=== PATIENT | male | born 1960 | race Caucasian/White ===

== ENCOUNTER → 2017-09-11 12:54 | Outpatient (CLI) | payer OTHER, SELFPAY ==
--- NOTE | 2017-09-11 13:05 | XR_ITS ---
XR ankle LT min 3V HISTORY: ITS.REASON: LT FOOT/ANKLE PAIN ORDERING PHYSICIAN: Alec Brennan MD PATIENT AGE: 56 years COMPARISON: None FINDINGS: No fracture or dislocation. No lytic or blastic change. There is normal mineralization.. The joint spaces are well-preserved. No significant degenerative/arthritic changes. No erosive changes evident. IMPRESSION: Negative ankle, no acute finding
--- NOTE | 2017-09-11 13:05 | XR_ITS ---
XR foot LT min 3V HISTORY: ITS.REASON: LT FOOT/ANKLE PAIN ORDERING PHYSICIAN: Alec Brennan MD PATIENT AGE: 56 years COMPARISON: None FINDINGS: Moderate osteoarthritic changes are present at the first metatarsophalangeal joint with decrease in the joint space, sclerosis, and osteophyte formation. Normal alignment. No fracture or dislocation. Prominent posterior osteophyte is present at the first metatarsal distally. IMPRESSION: Osteoarthritis of the first MTP joint otherwise negative
== END ==
PROVIDERS: PCP Family Medicine; Visit Provider Family Medicine
DX: M79.672 Pain in left foot (principal); M25.572 Pain in left ankle and joints of left foot
CPT/HCPCS: 73610; 73630

== ENCOUNTER → 2017-09-22 07:41 | Outpatient (CLI) | payer OTHER, SELFPAY ==
--- NOTE | 2017-09-22 08:17 | CT_ITS ---
CT ankle LT wo con INDICATION: Left ankle pain, history of gout, ITS.REASON: LEFT FOOT PAIN ORDERING PHYSICIAN: Alec Brennan MD PATIENT AGE: 56 years COMPARISON: 09/11/2017 TECHNIQUE: Axial images are obtained without contrast. Sagittal and coronal reformatted images are reviewed as well. All CT scans at the facility use one or more dose reduction, viz: automated exposure control; ma/kV adjustment per patient size (including targeted exams where dose is matched to indication; i.e. head); or iterative reconstruction technique. FINDINGS: No fracture or dislocation. No lytic or blastic change. The talar dome has an unremarkable appearance. No evidence of osteochondrosis/osteochondral defect. The joint space is well preserved at the ankle. The subtalar joint has an unremarkable appearance. No soft tissue masses or abnormalities evident. No radio opaque foreign bodies. IMPRESSION: Negative CT of the left ankle
--- NOTE | 2017-09-22 08:17 | CT_ITS ---
CT foot LT wo con INDICATION: Left foot pain, history of gout ITS.REASON: LEFT FOOT PAIN ORDERING PHYSICIAN: Alec Brennan MD PATIENT AGE: 56 years COMPARISON: 09/11/2017 TECHNIQUE: Axial images are obtained without contrast. Sagittal and coronal reformatted images are reviewed as well. All CT scans at the facility use one or more dose reduction, viz: automated exposure control; ma/kV adjustment per patient size (including targeted exams where dose is matched to indication; i.e. head); or iterative reconstruction technique. FINDINGS: No fracture or dislocation evident. No bony erosive process evident. There are moderate osteoarthritic changes of the first metatarsophalangeal joint with some minimal subarticular cystic changes which are well-circumscribed. Osteophyte is present along the distal and dorsal aspect of the first metatarsal. There is some minimal soft tissue calcification medial to the talonavicular joint nonspecific. No bony erosive process evident. No obvious gouty tophi. IMPRESSION: Osteoarthritic changes first metatarsophalangeal joint. No erosive changes or other acute finding evident
== END ==
PROVIDERS: PCP Family Medicine; Visit Provider Family Medicine
DX: M79.672 Pain in left foot (principal)
CPT/HCPCS: 73700

== ENCOUNTER → 2017-10-04 09:50 | Outpatient (CLI) | payer OTHER, SELFPAY ==
[2017-10-04 11:02] LABS: Basophils # 0.1 K/mm3 (0-0.2); Basophils % 0.8 % (0.1-2.0); Eosinophils # 0.1 K/mm3 (0.0-0.4); Hematocrit 56.1 % (42.0-52.0); Lymphocytes # 1.7 K/mm3 (0.7-4.5); Lymphocytes % 19.7 K/mm3 (10-50); Mean Corpuscular HGB Conc 33.2 g/dL (31.8-35.4); Mean Corpuscular Hemoglobin 30.6 pg (27.0-31.2); Mean Corpuscular Volume 91.9 fl (80-94); Monocytes # 0.4 K/mm3 (0.1-1.0); Monocytes % 5.1 % (1.7-9.3); Neutrophils # 6.4 K/mm3 (1.8-7.8); Neutrophils % 73.4 % (37.0-80.0); Platelet Count 183 K/mm3 (142-424); Red Cell Distribution Width 13.1 % (11.5-17.5); White Blood Count 8.7 K/mm3 (4.8-10.8)
[2017-10-04 11:24] LABS: Uric Acid 4.9 mg/dL (2.6-7.2)
[2017-10-04 11:40] LABS: C-Reactive Protein < 0.2 mg/L (0.0-0.9)
[2017-10-04 11:46] LABS: Hemoglobin 18.9 g/dL (14.1-18.0)
[2017-10-04 13:56] LABS: Erythrocyte Sedimentation Rate 10 mm/hr (0-20)
== END ==
PROVIDERS: PCP Family Medicine; Visit Provider Podiatrist
DX: M19.072 Primary osteoarthritis, left ankle and foot (principal); M25.572 Pain in left ankle and joints of left foot; M25.552 Pain in left hip; Z87.39 Personal history of other diseases of the musculoskeletal system and connective tissue
CPT/HCPCS: 36415; 84550; 85025; 85651; 86140

== ENCOUNTER → 2021-12-15 06:56 | Outpatient (CLI) | payer OTHER, SELFPAY ==
[2021-12-15 19:27] LABS: Basophils # 0.1 K/mm3 (0-0.2); Basophils % 1.7 % (0.1-2.0); Eosinophils # 0.2 K/mm3 (0.0-0.4); Eosinophils % 2.9 % (0.1-12.0); Hematocrit 48.6 % (42.0-52.0); Hemoglobin 15.6 g/dL (14.1-18.0); Lymphocytes % 29.8 % (10-50); Mean Corpuscular HGB Conc 32.1 g/dL (31.8-35.4); Mean Corpuscular Hemoglobin 30.5 pg (27.0-31.2); Mean Platelet Volume 9.9 fl (7.4-10.4); Monocytes # 0.5 K/mm3 (0.1-1.0); Monocytes % 7.3 % (1.7-9.3); Neutrophils # 3.9 K/mm3 (1.8-7.8); Neutrophils % 58.3 % (37.0-80.0); Platelet Count 211 K/mm3 (142-424); Red Blood Count 5.11 M/mm3 (4.60-6.20); Red Cell Distribution Width 13.6 % (11.5-17.5); White Blood Count 6.6 K/mm3 (4.8-10.8)
[2021-12-15 20:58] LABS: Alanine Aminotransferase 32 U/L (12-78); Albumin Level 4.3 g/dl (3.5-5.0); Albumin/Globulin Ratio 1.7 (1.1-1.8); Alkaline Phosphatase 72 U/L (38-126); Anion Gap 12.2 mEq/L (5-15); Aspartate Amino Transferase 28 U/L (17-59); Bilirubin,Total 0.6 mg/dl (0.2-1.3); Blood Urea Nitrogen 16 mg/dl (9-20); Calcium 9.1 mg/dl (8.4-10.2); Carbon Dioxide 27 mmol/L (22.0-30.0); Chloride 103 mmol/L (98-107); Chol/HDL Ratio 3.6 (1-3.5); Cholesterol 175 mg/dl (140-200); Estimated Glomerular Filt Rate 99 ml/min (>60); GFR (African American) 120 ML/MIN (>60); Globulin 2.6 g/dL (1.3-3.2); Glucose 124 mg/dl (74-100); HDL Cholesterol 49 mg/dl (40-60); Potassium 5.2 mmoL/L (3.5-5.1); Sodium 137 mmol/L (136-145); Total Protein,Serum 6.9 g/dl (6.3-8.2); Triglycerides 162 mg/dl (30-150); Uric Acid 5.4 mg/dl (3.5-8.5); VLDL Cholesterol 32 mg/dL (0-40)
[2021-12-15 21:17] LABS: Creatinine,Urine Random 36 mg/dL (Not Estab.)
[2021-12-15 21:23] LABS: Microalbumin < 6.000 mg/L (0-16.7)
[2021-12-15 21:28] LABS: Thyroid Stimulating Hormone 1.87 uIU/mL (0.465-4.68)
[2021-12-17 14:13] LABS: Direct LDL Cholesterol 91 mg/dL (100-129)
== END ==
PROVIDERS: PCP Family Medicine; Visit Provider Family Medicine
DX: E78.5 Hyperlipidemia, unspecified (principal); I10 Essential (primary) hypertension; E11.9 Type 2 diabetes mellitus without complications; Z79.84 Long term (current) use of oral hypoglycemic drugs
CPT/HCPCS: 80053; 80061; 82043; 82570; 84443; 84550; 85025

== ENCOUNTER 2022-08-05 07:30 | Day surgery (SDC) | payer OTHER, SELFPAY ==
[2022-08-04 09:47] VITALS: BMI 36.5
[2022-08-05 07:48] VITALS: BP 139/75; PULSE 70; RESP 18; TEMP 36.8; O2SAT 97
[2022-08-05 07:56] LABS: POC Glucose,Bedside 182 (70-110)
--- NOTE | 2022-08-05 08:56 | EXP.ANES.CKL ---
[facility] Disclaimer: The information contained in this section may have been updated after the patient was seen, as this information can be updated by other users. Medical History Diabetes type 2, uncontrolled HTN (hypertension) Hyperlipemia Surgical History No history of previous surgery Family History Other Cancer Diabetes Hyperlipidemia Hypertension Social History Smoking Status: Never smoker alcohol intake: former substance use type: denies use current occupational status: employed Travel in the last 8 weeks: None caffeine: Yes [facility] Anesthesia Checklist Patient Identification Patient Identification: Arm Band and Verbal (Name & ) Structural Data Admitted From: Home Planned Operative Procedure/s: Colonoscopy Consent for Planned Operative Procedure(s) Verified: Yes Verified Documents: Surgical Consent NPO Status Verified Time NPO: 03:00 Airway Assessment C-Spine Mobility Assessed: Yes TMJ Mobility Assessed: Yes Dentition: Poor Dentition Neurological Assessment Level of Consciousness: Awake, Alert and Appropriate Anesthesia Plan Anesthesia Risk discussed: Yes ASA Class: II Anesthesia Type: MAC
[2022-08-05 09:04] VITALS: O2SAT 97
--- NOTE | 2022-08-05 09:49 | P.PCN_ITS ---
Procedure: Date: 08/05/22 Patient Date of :: 1960 Procedure Performed:: Colonoscopy to cecum with polypectomy using hot snare and biopsy forceps Indications:: 61-year-old male referred by Darren Colunga for initial screening colonoscopy Performing Provider:: Chester Harris MD Referring Provider:: Darren Colunga Sedation:: MAC sedation Procedure:: Patient history was obtained and appropriate physical examination was performed. Patient's medications and allergies were reviewed. Informed consent was obtained after explaining the benefits, alternatives, and risks of the procedure including, but not limited to, bleeding, perforation, missed lesions, and adverse reaction to anesthesia medications. Patient was transported to endoscopy procedure room. Patient was connected to monitoring devices. Throughout the procedure the patient's blood pressure, pulse, and oxygen saturations were monitored continuously. Patient identification and planned procedure were verified by the staff. Patient was positioned in lateral decubitus position. Digital anorectal exam was performed. Variable stiffness Olympus colonoscope was inserted and advanced under direct visualization to the cecum. Adequacy of the colonic preparation was noted. The colonoscope was not able to be advanced into the terminal ileum. The colonoscope was then slowly withdrawn while carefully examining the color, texture, anatomy, and integrity of the mucosoa circumferentially. Within the rectum retroflexion was performed. Colonoscope was then withdrawn. Patient had some significant redundancy of the sigmoid colon which made advancement of the colonoscope somewhat difficult. Colonic preparation was fair and only fair visualization was achieved with trans colonoscopic irrigation and suctioning as there was particulate stool and undigested vegetable matter within the colon. However, the ileocecal valve and appendiceal orifice were clearly identified. Within the cecum there was a large flat irregular sessile polyp which was removed in a piecemeal fashion using hot snare. It appeared as though the entire polyp was removed. Colonoscope was withdrawn through the colon with careful surveillance. Irrigation was performed with suctioning but much of the particulate stool and undigested vegetable matter was unable to be removed and cleared. There were a couple of diminutive polyps at the splenic flexure re moved with cold biopsy. He had a few rare diverticuli. Findings:: Fair preparation despite irrigation and suctioning Moderately large irregular sessile polyp in the cecum removed with hot snare in a piecemeal fashion Diminutive polyps in the splenic flexure Rare diverticuli Recommendations:: Likely repeat colonoscopy 1 year given the poor preparation with actual low residue diet and multi day prep Complications:: None Estimated blood obtained (mL): 2
[2022-08-05 09:50] VITALS: BP 107/64; PULSE 89; RESP 16; TEMP 36.6; O2SAT 99
[2022-08-05 10:00] VITALS: BP 99/62; PULSE 71; RESP 16; O2SAT 98
[2022-08-05 10:10] VITALS: BP 129/80; PULSE 86; RESP 16; O2SAT 97
[2022-08-05 10:20] VITALS: BP 168/90; PULSE 69; RESP 18; O2SAT 100
== END 2022-08-05 10:20 | disposition home or self-care (01) ==
PROVIDERS: PCP Family Medicine; Visit Provider Surgery
PROC: 0DJD8ZZ Inspection of Lower Intestinal Tract, Via Natural or Artificial Opening Endoscopic (ICD-10-PCS; CPT 45380; principal; 2022-08-05 08:30)
DX: Z12.11 Encounter for screening for malignant neoplasm of colon (principal); D12.0 Benign neoplasm of cecum; E11.9 Type 2 diabetes mellitus without complications; Z79.899 Other long term (current) drug therapy
CPT/HCPCS: 45380; 45385; 82962; J2704

== ENCOUNTER → 2022-11-23 21:33 | Outpatient (CLI) | payer OTHER, SELFPAY ==
[2022-11-23 18:56] LABS: Basophils # 0.1 K/mm3 (0-0.2); Basophils % 1.2 % (0.1-2.0); Eosinophils # 0.1 K/mm3 (0.0-0.4); Eosinophils % 2.1 % (0.1-12.0); Hematocrit 52.5 % (42.0-52.0); Hemoglobin 16.6 g/dL (14.1-18.0); Lymphocytes # 1.8 K/mm3 (0.7-4.5); Lymphocytes % 29.1 % (10-50); Mean Corpuscular HGB Conc 31.7 g/dL (31.8-35.4); Mean Corpuscular Hemoglobin 30.1 pg (27.0-31.2); Mean Corpuscular Volume 95.1 fl (80-94); Mean Platelet Volume 9.9 fl (7.4-10.4); Monocytes # 0.5 K/mm3 (0.1-1.0); Monocytes % 7.7 % (1.7-9.3); Neutrophils # 3.8 K/mm3 (1.8-7.8); Neutrophils % 59.8 % (37.0-80.0); Platelet Count 174 K/mm3 (142-424); Red Blood Count 5.52 M/mm3 (4.60-6.20); Red Cell Distribution Width 13.5 % (11.5-17.5); White Blood Count 6.3 K/mm3 (4.8-10.8)
[2022-11-23 19:08] LABS: Alanine Aminotransferase 52 U/L (12-78); Albumin Level 4.4 g/dl (3.5-5.0); Albumin/Globulin Ratio 1.5 (1.1-1.8); Alkaline Phosphatase 81 U/L (38-126); Anion Gap 13.6 mEq/L (5-15); Aspartate Amino Transferase 36 U/L (17-59); Bilirubin,Total 0.7 mg/dl (0.2-1.3); Blood Urea Nitrogen 19 mg/dl (9-20); Calcium 9.3 mg/dl (8.4-10.2); Carbon Dioxide 26 mmol/L (22.0-30.0); Chloride 100 mmol/L (98-107); Chol/HDL Ratio 3.8 (1-3.5); Cholesterol 192 mg/dl (140-200); Estimated Glomerular Filt Rate 99 ml/min (>60); GFR (African American) 119 ML/MIN (>60); Glucose 161 mg/dl (74-100); HDL Cholesterol 51 mg/dl (40-60); Potassium 4.6 mmoL/L (3.5-5.1); Sodium 135 mmol/L (136-145); Total Protein,Serum 7.4 g/dl (6.3-8.2); Triglycerides 203 mg/dl (30-150); VLDL Cholesterol 41 mg/dL (0-40)
[2022-11-23 19:15] LABS: Creatinine,Urine Random 22 mg/dL (Not Estab.)
[2022-11-23 19:17] LABS: Microalbumin < 6.000 mg/L (0-16.7)
[2022-11-23 19:20] LABS: Direct LDL Cholesterol 95.79 mg/dL (100-129)
[2022-11-23 19:38] LABS: Prostate Specific Ag Screen 1.3 ng/ml (0.0-4.0)
[2022-11-23 19:44] LABS: Thyroid Stimulating Hormone 1.47 uIU/mL (0.465-4.68)
== END ==
PROVIDERS: PCP Family Medicine; Visit Provider Nurse Practitioner
DX: I10 Essential (primary) hypertension (principal); E78.5 Hyperlipidemia, unspecified; Z79.899 Other long term (current) drug therapy; Z12.5 Encounter for screening for malignant neoplasm of prostate
CPT/HCPCS: 80053; 80061; 82043; 82570; 83036; 84443; 85025; G0103

== ENCOUNTER 2023-02-17 06:16 | Day surgery (SDC) | payer OTHER, SELFPAY ==
[2023-02-15 15:02] VITALS: BMI 36.5
[2023-02-17] VITALS (7 sets, daily range): BP systolic 110–153; BP diastolic 66–79; PULSE 72–89; RESP 14–18; TEMP 36.4–36.6; O2SAT 93–97
[2023-02-17 06:51] LABS: POC Glucose,Bedside 174 (70-110)
--- NOTE | 2023-02-17 07:09 | EXP.ANES.CKL ---
[facility] Disclaimer: The information contained in this section may have been updated after the patient was seen, as this information can be updated by other users. Medical History Diabetes type 2, uncontrolled HTN (hypertension) Hyperlipemia Screening for malignant neoplasm of prostate Surgical History History of colonoscopy with polypectomy Family History Other Cancer Diabetes Hyperlipidemia Hypertension Social History (Updated 02/17/23 @ 06:49 by Reanna Frye RN) Smoking Status: Never smoker alcohol intake: former substance use type: denies use current occupational status: employed Travel in the last 8 weeks: None caffeine: Yes [facility] Anesthesia Checklist Patient Identification Patient Identification: Arm Band and Verbal (Name & ) Structural Data Admitted From: Home Planned Operative Procedure/s: Colonoscopy Consent for Planned Operative Procedure(s) Verified: Yes Verified Documents: Surgical Consent and History and Physical NPO Status Verified Time NPO: 03:00 Chart Verification Results Verified: CBC and BMP Additional verifications Fingerstick Blood Glucose: 174 Patient : No Anesthesia Reactions: No Hx Blood Transfusions: No Blood Transfusion Reaction: No Cephalosporin Allergy: No Previous Colonoscopy: Yes Cardiovascular Assessment Heart Sounds: S1 & S2 Pulse Rhythm: Irregular Peripheral Edema: No Airway Assessment Mallampati Score:: Class III C-Spine Mobility Assessed: Yes TMJ Mobility Assessed: Yes Dentition: Poor Dentition (Many missing, many broken. Nothing loose per pt.) Neurological Assessment Level of Consciousness: Awake, Alert, Appropriate and Follows Commands Hx Seizures: No Numbness or tingling in extremities: No Anesthesia Plan Anesthesia Risk discussed: Yes Anesthesia Plan: Verified ASA Class: III Anesthesia Type: MAC
--- NOTE | 2023-02-17 07:44 | P.PCN_ITS ---
Procedure: Date: 02/17/23 Patient Date of :: 1960 Procedure Performed:: Total colonoscopy to terminal ileum Indications:: Patient is a 62-year-old male whom I had performed initial screening colonoscopy on on 08/05/2022 after he had a positive Cologuard. He did have some significant redundancy and floppiness of the sigmoid colon. Colonic preparation was fair. In the cecum there was a large flat irregular sessile polyp removed piecemeal fashion using hot snare. It did appear as though the entire polyp was removed. However, this returned as sessile serrated adenoma. Given the large size and s uboptimal visualization recommendations were for follow-up colonoscopy 6 months to ensure complete removal and rule out early recurrence. Performing Provider:: Chester Harris MD Referring Provider:: Darren Colunga MD Sedation:: MAC sedation Procedure:: Patient history was obtained and appropriate physical examination was performed. Patient's medications and allergies were reviewed. Informed consent was obtained after explaining the benefits, alternatives, and risks of the procedure including, but not limited to, bleeding, perforation, missed lesions, and adverse reaction to anesthesia medications. Patient was transported to endoscopy procedure room. Patient was connected to monitoring devices. Throughout the procedure the patient's blood pressure, pulse, and oxygen saturations were monitored continuously. Patient identification and planned procedure were verified by the staff. Patient was positioned in lateral decubitus position. Digital anorectal exam was performed. Variable stiffness Olympus colonoscope was inserted and advanced under direct visualization to the cecum. Adequacy of the colonic preparation was noted. The colonoscope was advanced a short distance into the terminal ileum. The colonoscope was then slowly withdrawn while carefully examining the color, texture, anatomy, and integrity of the mucosoa circumferentially. Within the rectum retroflexion was performed. Colonoscope was then withdrawn. . Colonic preparation was good. Visualization was good. Prolonged careful surveillance was carried out within the right colon and there was no evidence of any residual polyp or early recurrence. . Findings:: Unremarkable colonoscopy Recommendations:: Given prior history of large sessile polyp recommend repeat colonoscopy 2 years Complications:: None immediately apparent Estimated blood obtained (mL): 0 Colonoscopy Component Colonoscopy Component Was a colonoscopy performed during today's procedure?: Yes Recommended follow up colonoscopy of at least 10 years?: No If no, follow up colonoscopy recommended in ___ years?: 2 Reason for not recommending >/= 10 yr follow-up interval?: See above
--- NOTE | 2023-02-17 11:43 | P.PNANES_ITS ---
[facility] Anesthesia Record Part I Anesthesia Record I Intake, IV Amount: 600 Hydration: Adequate Estimated blood loss (mL): 0 Urine output (mL): 0 Blood Products used (#): none Blood Pressure: 111/66 SaO2: 96 Pulse Rate: 83 Airway Patency: Patent Respiratory Rate: 16 Temperature: 97.9 F Patient is:: Awake (Talking) and Stable Stable to PACU at:: 07:52
== END 2023-02-17 08:32 | disposition home or self-care (01) ==
PROVIDERS: PCP Family Medicine; Visit Provider Surgery
PROC: 0DJD8ZZ Inspection of Lower Intestinal Tract, Via Natural or Artificial Opening Endoscopic (ICD-10-PCS; CPT 45378; principal; 2023-02-17 07:30)
DX: Z12.11 Encounter for screening for malignant neoplasm of colon (principal); Z86.010 Personal history of colon polyps; E11.9 Type 2 diabetes mellitus without complications
CPT/HCPCS: 45378; 82962; J2704

== ENCOUNTER 2023-05-17 19:09 | Outpatient (CLI) | payer OTHER, SELFPAY ==
[2023-05-17 18:38] LABS: Alanine Aminotransferase 35 U/L (12-78); Albumin Level 4.1 g/dl (3.5-5.0); Albumin/Globulin Ratio 1.6 (1.1-1.8); Alkaline Phosphatase 66 U/L (38-126); Anion Gap 15.5 mEq/L (5-15); Aspartate Amino Transferase 26 U/L (17-59); Bilirubin,Total 0.6 mg/dl (0.2-1.3); Blood Urea Nitrogen 15 mg/dl (9-20); Calcium 9.1 mg/dl (8.4-10.2); Carbon Dioxide 28 mmol/L (22.0-30.0); Chloride 95 mmol/L (98-107); Chol/HDL Ratio 4.5 (1-3.5); Cholesterol 167 mg/dl (140-200); Estimated Glomerular Filt Rate 86 ml/min (>60); GFR (African American) 104 ML/MIN (>60); Globulin 2.6 g/dL (1.3-3.2); Glucose 178 mg/dl (74-100); HDL Cholesterol 37 mg/dl (40-60); Potassium 4.5 mmoL/L (3.5-5.1); Sodium 134 mmol/L (136-145); Total Protein,Serum 6.7 g/dl (6.3-8.2); Triglycerides 122 mg/dl (30-150); VLDL Cholesterol 24 mg/dL (0-40)
[2023-05-17 18:48] LABS: Direct LDL Cholesterol 98.32 mg/dL (100-129)
[2023-05-17 19:12] LABS: Creatinine,Urine Random 46 mg/dL (Not Estab.)
[2023-05-17 19:18] LABS: Microalbumin < 6.000 mg/L (0-16.7)
[2023-05-17 19:26] LABS: Vitamin B12 394 pg/mL (239-931)
== END 2023-05-17 23:59 ==
LOC: LAB.DROPOF 19:10
PROVIDERS: PCP Nurse Practitioner; Visit Provider Nurse Practitioner
DX: E78.5 Hyperlipidemia, unspecified (principal); I10 Essential (primary) hypertension
CPT/HCPCS: 80053; 80061; 82043; 82570; 82607

== ENCOUNTER 2023-08-01 18:00 | Outpatient (CLI) | payer OTHER, SELFPAY ==
[2023-08-01 18:52] LABS: Alanine Aminotransferase 30 U/L (12-78); Anion Gap 13.4 mEq/L (5-15); Aspartate Amino Transferase 25 U/L (17-59); Bilirubin,Total 0.6 mg/dl (0.2-1.3); Blood Urea Nitrogen 26 mg/dl (9-20); Calcium 9.4 mg/dl (8.4-10.2); Carbon Dioxide 22 mmol/L (22.0-30.0); Chloride 106 mmol/L (98-107); Estimated Glomerular Filt Rate 98 ml/min (>60); GFR (African American) 119 ML/MIN (>60); Glucose 174 mg/dl (74-100); Potassium 4.4 mmoL/L (3.5-5.1); Sodium 137 mmol/L (136-145)
[2023-08-01 18:53] LABS: Albumin Level 4.4 g/dl (3.5-5.0); Albumin/Globulin Ratio 1.6 (1.1-1.8); Alkaline Phosphatase 74 U/L (38-126); Globulin 2.7 g/dL (1.3-3.2); Total Protein,Serum 7.1 g/dl (6.3-8.2)
[2023-08-01 20:09] LABS: Hemoglobin A1C 8.2 % (4.0-6.0)
== END 2023-08-01 23:59 | disposition home or self-care (01) ==
LOC: LAB.DROPOF 08-02 08:19
PROVIDERS: PCP Nurse Practitioner; Visit Provider Nurse Practitioner
DX: E11.9 Type 2 diabetes mellitus without complications (principal); Z79.84 Long term (current) use of oral hypoglycemic drugs
CPT/HCPCS: 80053; 83036

== ENCOUNTER 2023-11-07 10:18 | Outpatient (CLI) | payer OTHER, SELFPAY ==
[2023-11-07 19:19] LABS: Albumin Level 4.3 g/dl (3.5-5.0); Chloride 106 mmol/L (98-107); Potassium 4.5 mmoL/L (3.5-5.1); Sodium 136 mmol/L (136-145)
[2023-11-07 19:21] LABS: Alanine Aminotransferase 32 U/L (12-78); Blood Urea Nitrogen 17 mg/dl (9-20); Estimated Glomerular Filt Rate 98 ml/min (>60); GFR (African American) 119 ML/MIN (>60)
[2023-11-07 19:22] LABS: Albumin/Globulin Ratio 1.7 (1.1-1.8); Alkaline Phosphatase 69 U/L (38-126); Anion Gap 12.5 mEq/L (5-15); Aspartate Amino Transferase 28 U/L (17-59); Bilirubin,Total 0.5 mg/dl (0.2-1.3); Calcium 9.6 mg/dl (8.4-10.2); Carbon Dioxide 22 mmol/L (22.0-30.0); Chol/HDL Ratio 3.8 (1-3.5); Cholesterol 195 mg/dl (140-200); Globulin 2.6 g/dL (1.3-3.2); Glucose 152 mg/dl (74-100); HDL Cholesterol 52 mg/dl (40-60); Total Protein,Serum 6.9 g/dl (6.3-8.2); Triglycerides 193 mg/dl (30-150); VLDL Cholesterol 39 mg/dL (0-40)
[2023-11-07 19:24] LABS: Hemoglobin A1C 7.1 % (4.0-6.0)
[2023-11-07 19:33] LABS: Direct LDL Cholesterol 106.25 mg/dL (100-129)
== END 2023-11-07 23:59 | disposition home or self-care (01) ==
LOC: LAB.DROPOF 11-08 10:18
PROVIDERS: PCP Nurse Practitioner; Visit Provider Nurse Practitioner
DX: Z79.84 Long term (current) use of oral hypoglycemic drugs (principal); E11.9 Type 2 diabetes mellitus without complications; E78.5 Hyperlipidemia, unspecified
CPT/HCPCS: 80053; 80061; 83036

== ENCOUNTER 2024-02-12 11:49 | Outpatient (CLI) | payer OTHER, SELFPAY ==
[2024-02-12 18:47] LABS: Hemoglobin A1C 7.4 % (4.0-6.0)
[2024-02-12 18:52] LABS: Alanine Aminotransferase 30 U/L (12-78); Albumin Level 4.4 g/dl (3.5-5.0); Albumin/Globulin Ratio 1.6 (1.1-1.8); Alkaline Phosphatase 64 U/L (38-126); Anion Gap 9.5 mEq/L (5-15); Aspartate Amino Transferase 26 U/L (17-59); Bilirubin,Total 0.7 mg/dl (0.2-1.3); Blood Urea Nitrogen 20 mg/dl (9-20); Calcium 9.5 mg/dl (8.4-10.2); Carbon Dioxide 22 mmol/L (22.0-30.0); Chloride 105 mmol/L (98-107); Chol/HDL Ratio 3.6 (1-3.5); Cholesterol 188 mg/dl (140-200); Estimated Glomerular Filt Rate 86 ml/min (>60); GFR (African American) 103 ML/MIN (>60); Globulin 2.7 g/dL (1.3-3.2); Glucose 132 mg/dl (74-100); HDL Cholesterol 52 mg/dl (40-60); Potassium 4.5 mmoL/L (3.5-5.1); Sodium 132 mmol/L (136-145); Total Protein,Serum 7.1 g/dl (6.3-8.2); Triglycerides 161 mg/dl (30-150); VLDL Cholesterol 32 mg/dL (0-40)
[2024-02-12 19:04] LABS: Direct LDL Cholesterol 116.25 mg/dL (100-129)
[2024-02-12 19:24] LABS: Prostate Specific Ag Screen 1.4 ng/ml (0.0-4.0); Thyroid Stimulating Hormone 1.61 uIU/mL (0.465-4.68)
[2024-02-12 19:42] LABS: Vitamin B12 457 pg/mL (239-931)
== END 2024-02-12 23:59 | disposition home or self-care (01) ==
LOC: LAB.DROPOF 02-13 11:49
PROVIDERS: PCP Nurse Practitioner; Visit Provider Nurse Practitioner
DX: E11.9 Type 2 diabetes mellitus without complications (principal); E78.5 Hyperlipidemia, unspecified; Z12.5 Encounter for screening for malignant neoplasm of prostate
CPT/HCPCS: 80053; 80061; 82607; 83036; 84443; G0103

== ENCOUNTER 2024-07-23 09:17 | Outpatient (CLI) | payer OTHER, SELFPAY ==
[2024-07-23 18:40] LABS: Basophils # 0.1 K/mm3 (0-0.2); Basophils % 1.2 % (0.1-2.0); Eosinophils # 0.2 K/mm3 (0.0-0.4); Eosinophils % 2.6 % (0.1-12.0); Hematocrit 48.3 % (42.0-52.0); Hemoglobin 15.9 g/dL (14.1-18.0); Lymphocytes # 1.7 K/mm3 (0.7-4.5); Lymphocytes % 25.8 % (10-50); Mean Corpuscular HGB Conc 32.9 g/dL (31.8-35.4); Mean Corpuscular Hemoglobin 30.3 pg (27.0-31.2); Monocytes # 0.6 K/mm3 (0.1-1.0); Monocytes % 8.5 % (1.7-9.3); Neutrophils # 4.1 K/mm3 (1.8-7.8); Neutrophils % 61.4 % (37.0-80.0); Nucleated Red Blood Cells # 0 10^3/uL; Nucleated Red Blood Cells % 0 %; Platelet Count 183 K/mm3 (142-424); Red Blood Count 5.25 M/mm3 (4.60-6.20); Red Cell Distribution Width 13.2 % (11.5-17.5); Red Cell Distribution Width-SD 44.6 fL; White Blood Count 6.6 K/mm3 (4.8-10.8)
[2024-07-23 19:20] LABS: Albumin Level 4.1 g/dl (3.5-5.0); Chloride 103 mmol/L (98-107); Potassium 4.5 mmoL/L (3.5-5.1); Sodium 136 mmol/L (136-145)
[2024-07-23 19:22] LABS: Alanine Aminotransferase 25 U/L (12-78); Blood Urea Nitrogen 20 mg/dl (9-20); Estimated Glomerular Filt Rate 98 ml/min (>60); GFR (African American) 119 ML/MIN (>60)
[2024-07-23 19:23] LABS: Albumin/Globulin Ratio 1.5 (1.1-1.8); Alkaline Phosphatase 74 U/L (38-126); Anion Gap 12.5 mEq/L (5-15); Aspartate Amino Transferase 21 U/L (17-59); Bilirubin,Total 0.7 mg/dl (0.2-1.3); Calcium 9.2 mg/dl (8.4-10.2); Carbon Dioxide 25 mmol/L (22.0-30.0); Chol/HDL Ratio 3.3 (1-3.5); Cholesterol 180 mg/dl (140-200); Globulin 2.8 g/dL (1.3-3.2); Glucose 160 mg/dl (74-100); HDL Cholesterol 54 mg/dl (40-60); Total Protein,Serum 6.9 g/dl (6.3-8.2); Triglycerides 165 mg/dl (30-150); VLDL Cholesterol 33 mg/dL (0-40)
[2024-07-23 19:34] LABS: Direct LDL Cholesterol 93.55 mg/dL (100-129)
[2024-07-23 21:09] LABS: Hemoglobin A1C 7.7 % (4.0-6.0)
== END 2024-07-23 23:59 | disposition home or self-care (01) ==
LOC: LAB.DROPOF 07-24 11:19
PROVIDERS: PCP Nurse Practitioner; Visit Provider Nurse Practitioner
DX: E78.5 Hyperlipidemia, unspecified (principal); E11.9 Type 2 diabetes mellitus without complications; Z79.84 Long term (current) use of oral hypoglycemic drugs
CPT/HCPCS: 80053; 80061; 83036; 85025

== ENCOUNTER 2024-09-25 11:00 | Outpatient (CLI) | payer SELFPAY | END 2024-09-25 23:59 | disposition home or self-care (01) | LOC: LAB.DROPOF 09-26 08:20 | PROVIDERS: PCP Nurse Practitioner; Visit Provider Nurse Practitioner | DX: L02.511 Cutaneous abscess of right hand (principal); L03.113 Cellulitis of right upper limb | CPT/HCPCS: 87070; 87077; 87205 ==

== ENCOUNTER 2024-09-27 23:48 | Emergency (ER) | payer SELFPAY ==
--- NOTE | 2024-09-27 23:57 | ED_ITS ---
Discharge Plan Disposition Patient Disposition: Xfer Other Prescriptions Prescriptions: No Action (DME) blood-glucose meter [Blood Glucose Monitoring] Kit See Rx Instructions .MEDSUPPLY Qty: 1 0RF Rx Instructions: As directed levofloxacin 750 mg tablet 750 mg PO DAILY Qty: 10 0RF doxycycline hyclate 100 mg tablet 100 mg PO BID Qty: 20 0RF metformin 500 mg tablet extended release 24 hr 500 mg PO BID Qty: 180 1RF Jardiance 25 mg tablet 25 mg PO DAILY Qty: 30 5RF (DME) Blood Glucose Test Strip See Rx Instructions .MEDSUPPLY Qty: 50 11RF Rx Instructions: check fasting blood sugar qAM (DME) lancets [OneTouch Delica Plus Lancet] 33 gauge misc See Rx Instructions .ROUTE .COMPLEX Qty: 100 11RF Dose Instruction: USE DIRECTED Rx Instructions: USE DIRECTED lisinopril 30 mg tablet 30 mg PO DAILY Qty: 90 1RF atorvastatin 40 mg tablet 40 mg PO DAILY Qty: 90 1RF Referrals Follow up/Referrals: Francisca Echeverria APRN [Primary Care Provider, Family Practice] - See instructions Clinical Impressions Clinical Impression: Abscess of right hand, Cellulitis of right hand Instructions Patient Instructions: DI for Laceration Repair Print Language Print Language: Iraqi Discharge ED Provider: Raz Warren General Adult HPI General Chief complaint: Wound/Laceration Stated complaint: wound R hand, infection, swelling Time Seen by Provider: 09/27/24 23:56 History of Present Illness HPI narrative: 63 male with history of diabetes, hypertension, obesity presents for right hand infection. He reports that he cut it 1 week ago. He was seen by his PCP when it continued to worsen and he was given a tetanus shot and started on doxycycline and Levaquin. The redness was extending most of the way up his forearm at 1 point, but the extent of the redness is decreasing. He comes in tonight because the white area around the wound is getting larger. He reports that he has been doing Epsom soaks and it is continuing to drain. Denies any fevers chills or systemic symptoms. Related Data Previous Rx's ?Medication ?Instructions ?Recorded blood-glucose meter (Blood Glucose #1 ea 05/17/23 Monitoring kit) metformin 500 mg tablet,extended 500 mg PO BID Diabete s #180 tabs 10/30/24 release 24 hr empagliflozin 25 mg tablet 25 mg PO DAILY #30 tabs 06/03 (Jardiance) blood sugar diagnostic (Blood #50 ea 06/04/24 Glucose Test strips) lancets 33 gauge (OneTouch Delica #100 ea 06/21/24 Plus Lancet) lisinopril 30 mg tablet 30 mg PO DAILY htn #90 tabs 08/19/24 atorvastatin 40 mg tablet 40 mg PO DAILY #90 tabs 08/09 11/01 doxycycline hyclate 100 mg tablet 100 mg PO BID #20 ta bs 09/25/24 levofloxacin 750 mg tablet 750 mg PO DAILY #10 tabs Allergies Allergy/AdvReac Type Severity Reaction Status Date / Time No Known Allergies Allergy Verified 09/26/24 09:19 [facility] Disclaimer: The information contained in this section may have been updated after the patient was seen, as this information can be updated by other users. Medical History Cellulitis of right hand Abscess of right hand Type 2 diabetes mellitus without complications Screening for malignant neoplasm of prostate HTN (hypertension) Diabetes type 2, uncontrolled Hyperlipemia Surgical History History of colonoscopy with polypectomy Family History Other Cancer Diabetes Hyperlipidemia Hypertension Social History (Updated 09/26/24 @ 09:17 by Helen Doran MA) Smoking Status: Never smoker alcohol intake: former substance use type: denies use current occupational status: employed Travel in the last 8 weeks?: None caffeine: Yes Other Medical History Have you received the Flu Vaccine for this season: No Have you received the Pneumonia Vaccine: No ROS Obtained: Yes All systems reviewed & no additional complaints except as documented Physical Exam General General appearance: alert and in no apparent distress Head Head exam: atraumatic and normocephalic Eye Eye exam: Present normal appearance, PERRL and EOMI ENT ENT exam: Present normal oropharynx and normal external ear exam Neck Neck exam: Present normal inspection and full ROM Chest Chest inspection: Present normal inspection and symmetric chest wall rise; Absent tenderness Respiratory Respiratory exam: Present normal lung sounds bilaterally; Absent respiratory distress Cardiovascular Cardiovascular exam: Present regular rate and normal rhythm Abdominal Exam Abdominal exam: Present soft; Absent distention, tenderness or guarding Extremities Exam Extremities exam: Present other (Large white area with central draining wound over the base of the hypothenar eminence. There are some erythema that extends midway up the palm as well as proximally < retirement up the forearm. No significant tenderness over the course of the flexor tendon sheaths. No pain with passive ROM); Absent edema or joint swelling Back Exam Back exam: Present normal inspection; Absent tenderness Neurological Exam Neurological exam: Present alert and oriented X3; Absent motor sensory deficit Psychiatric Psychiatric exam: Present normal affect and normal mood Skin Skin exam: Present warm, dry and normal color Lymphatic Lymphatic Findings: no adenopathy Medical Decision Making Medical Records Medical records reviewed: Yes I reviewed the patient's medical records. Screening: Per USPSTF and CDC recommendations, given the prevalence of disease in our region, it is our hospital?s policy to screen for HIV and viral Hepatitis for all patients aged 18 and over and those with ongoing risk factors. Remy Inquiry Pt receiving controlled substance: No Remy was queried for this patient: No Vital Signs: 09/27/24 23:59 09/28/24 00:00 09/28/24 00:30 Temperature 98.4 F Temperature Source Oral Pulse Rate 81 74 Pulse Rate [Left] 75 Respiratory Rate 16 Blood Pressure 147/85 H 144/77 H Blood Pressure [Right Arm] 147/85 H Blood Pressure Mean 113 115 Blood Pressure Mean [Right Arm] 105 Blood Pressure Source Blood Pressure Source [Right Arm] Automatic Cuff Blood Pressure Position Blood Pressure Position [Right Arm] Sitting 02 Sat by Pulse Oximetry 96 96 97 Oxygen Delivery Method Room Air 09/28/24 01:25 09/28/24 02:15 Temperature Temperature Source Pulse Rate 71 77 Pulse Rate [Left] Respiratory Rate 16 16 Blood Pressure 144/75 H 146/73 H Blood Pressure [Right Arm] Blood Pressure Mean Blood Pressure Mean [Right Arm] Blood Pressure Source Automatic Cuff Automatic Cuff Blood Pressure Source [Right Arm] Blood Pressure Position Supine Supine Blood Pressure Position [Right Arm] 02 Sat by Pulse Oximetry 98 97 Oxygen Delivery Method Room Air Room Air Lab Data Lab results reviewed: Yes I reviewed the patient's lab results. Lab Results 09/28/24 00:10: WBC 13.1 H, RBC 4.92, Hgb 14.8, Hct 43.9, MCV 89.2, MCH 30.1, MCHC 33.7, RDW 12.8, Plt Count 222, MPV 10.0, Neut % (Auto) 78.6, Lymph % (Auto) 10.7, [place] % (Auto) 9.0, Eos % (Auto) 0.7, Baso % (Auto) 0.4, Neut # (Auto) 10.3 H, Lymph # (Auto) 1.4, [place] # (Auto) 1.2 H, Eos # (Auto) 0.1, Baso # (Auto) 0.1, Sodium 135 L, Potassium 4.4, Chloride 105, Carbon Dioxide 23, Anion Gap 11.4, B UN 22 H, Creatinine 0.90, Estimated Creat Clear 113, Estimated GFR 86, Est GFR ( Amer) 103, Glucose 213 H, Lactate 1.0, Calcium 9.2, Total Bilirubin 0.6, AST 22, ALT 19, Alkaline Phosphatase 90, Total Protein 7.5, Albumin 4.0, G lobulin 3.5 H, Albumin/Globulin Ratio 1.1 09/28/24 00:10 09/28/24 00:10 Orders (Tests/Meds): ED MEDICATIONS Generic Name Dose Route Start Last Admin Trade Name Freq PRN Reason Stop Dose Admin Piperacillin Sod/Tazobactam 100 mls @ 200 mls/hr 09/28/24 00:15 09/28/24 00:32 Sod 4.5 gm/ Sodium Chloride IV 10/08/24 00:14 200 mls/hr Q6H IVETT Administration Vancomycin HCl 2,000 mg/ 250 mls @ 125 mls/hr 09/28/24 00:30 09/28/24 00:47 Sodium Chloride IV 09/28/24 02:29 125 mls/hr ONCE ONE Administration Clindamycin Phosphate 900 mg in 50 mls @ 100 mls/hr 09/28/24 01:54 09/28/24 02:11 Clindamycin 900mg/50ml D5w Premix IV 09/28/24 02:23 100 mls/hr ONCE ONE Administration Miscellaneous 1 each 09/28/24 00:15 09/28/24 00:26 Vancomycin Consult Request NOTAPPLIC 10/28/24 00:14 1 each CONSULT PHARMACY IVETT Administration Discontinued Medications Generic Name Dose Route Start Last Admin Trade Name Freq PRN Reason Stop Dose Admin Iopamidol 75 ml 09/28/24 01:40 09/28/24 01:41 Iopamidol-370 (76%);100ml Bottle IV 09/28/24 01:41 75 ml ONCE ONE Administration Sodium Chloride 10 ml 09/28/24 01:40 09/28/24 01:41 Sodium Chloride 0.9% 10ml Syr (Rad Only) IV 09/28/24 01:41 10 ml ONCE ONE Administration ORDERS Category Date Time Status CT hand RT w con Stat Cat Scan 09/28/24 00:09 Completed CBC w/Auto Diff [Complete Blood Count Auto Diff] Stat Lab 09/28/24 00:10 Completed CMP [Comprehensive Metabolic Panel] Stat Lab 09/28/24 00:10 Completed Lactate Venous Stat Lab 09/28/24 00:24 Stop Req Lactic Acid Stat Lab 09/28/24 00:10 Completed Blood Culture Stat Micro 09/28/24 00:30 Received Wound Culture and Gram Stain Stat Micro 09/28/24 00:15 Received Medical Decision Narrative: 63-year-old male with history of hypertension diabetes, obesity presents for infected wound on his right palm, sustained 1 week ago, has been taking Doxy and Levaquin over the last 3 days. History was obtained via interactive discussion with patient, chart review. On arrival, patient is [afebrile, hemodynamically stable, satting appropriately, alert, oriented x4, GCS 15], moving all extremities spontaneously. Full physical exam performed and significant for Large white area with central draining wound over the base of the hypothenar eminence. There are some erythema that extends midway up the palm as well as proximally < retirement up the forearm. No significant tenderness over the course of the flexor tendon sheaths. No pain with passive ROM. Upon chart review, patient's Gram stain was positive for GPC's and GNR's, wound cultures positive for GNR's. Patient reports that redness has been improving, but the white area around the draining lesion has been enlarging. Differential includes but is not limited to abscess, cellulitis, deep space infection, flexor tenosynovitis, necrotizing infection Patient was given vancomycin Zosyn clinda for symptomatic management and correction of underlying abnormalities. Workup initiated including CBC CMP blood culture wound culture lactate CT hand with contrast. I tried to evaluate with ultrasound but was not able to get diagnostic images.. On re-evaluation, patient [remains afebrile, HD stable.] Laboratory workup independently interpreted by me and significant for mild leukocytosis, no significant electrolyte derangement. Imaging independently interpreted by me and significant for abscess with gas and fluid running along the hyperthenar eminence, may be intramuscular. See radiology read for full review of final results. Admission to our facility was considered, but given concern for deep space infection of the hand, I think patient requires transfer for hand surgery evaluation. Interactive case was had with the [facility] and Dr. Austin who accepted the patient in transfer. Given patient history, exam and workup, patient's presentation most likely represents abscess and cellulitis of the hand. Procedures Risk/Benefits of Procedure(s) Were Explained: Yes Critical Care Critical Care Time Critical Care Time: No
[2024-09-27 23:59] VITALS: BP 147/85; PULSE 75; RESP 16; TEMP 36.9; O2SAT 96; BMI 34.9
[2024-09-28] VITALS: BP 147/85; PULSE 81; O2SAT 96
--- NOTE | 2024-09-28 00:09 | CT_ITS ---
PROCEDURE INFORMATION: Exam: CT Right Upper Extremity With Contrast, Hand Exam date and time: 09/28/2024 1:32 AM Age: 63 years old Clinical indication: Pain; Swelling; Right; Hand and wrist; Additional info: Palmar abscess/cellulitis, cut on tin can TECHNIQUE: Imaging protocol: Computed tomography of the right upper extremity with contrast. Exam focused on the hand. Radiation optimization: All CT scans at this facility use at least one of these dose optimization techniques: automated exposure control; mA and/or kV adjustment per patient size (includes targeted exams where dose is matched to clinical indication); or iterative reconstruction. Contrast material: ISOVUE; Contrast volume: 75 ml; Contrast route: IV; COMPARISON: No relevant prior studies available. FINDINGS: Bones/joints: Normal. No acute fracture or dislocation. Soft tissues: Subcutaneous and superficial muscular complex fluid collection, measuring 3.3 x 1.2 x 3.8 cm, overlying palmar aspect of 5th metacarpal. Poorly defined regional cellulitis. No radiopaque foreign body. IMPRESSION: Subcutaneous/intramuscular abscess with regional cellulitis, corresponding to symptomatic area.
[2024-09-28] MEDS: VANCOMYCIN CONSULT REQUEST 1 EACH NOTAPPLIC (00:26)
[2024-09-28 00:30] VITALS: BP 144/77; PULSE 74; O2SAT 97
[2024-09-28 00:32] LABS: Basophils # 0.1 K/mm3 (0-0.2); Basophils % 0.4 % (0.1-2.0); Eosinophils # 0.1 Kmm3 (0.0-0.4); Eosinophils % 0.7 % (0.1-12.0); Hematocrit 43.9 % (42.0-52.0); Hemoglobin 14.8 g/dL (14.1-18.0); Immature Granulocytes # 0.08 10^3uL; Immature Granulocytes % 0.6 %; Lymphocytes # 1.4 K/mm3 (0.7-4.5); Lymphocytes % 10.7 % (10-50); Mean Corpuscular HGB Conc 33.7 g/dL (31.8-35.4); Mean Corpuscular Hemoglobin 30.1 pg (27.0-31.2); Mean Corpuscular Volume 89.2 fl (80-94); Monocytes # 1.2 K/mm3 (0.1-1.0); Neutrophils # 10.3 K/mm3 (1.8-7.8); Neutrophils % 78.6 % (37.0-80.0); Nucleated Red Blood Cells # 0 10^3/uL; Nucleated Red Blood Cells % 0 %; Platelet Count 222 K/mm3 (142-424); Red Blood Count 4.92 M/mm3 (4.60-6.20); Red Cell Distribution Width 12.8 % (11.5-17.5); Red Cell Distribution Width-SD 42.4 fL; White Blood Count 13.1 K/mm3 (4.8-10.8)
[2024-09-28] MEDS: PIPERACILLIN/TAZO 4.5 GM in 0.9 % SODIUM CHLORIDE 100 ML IV (00:32)
[2024-09-28] MEDS: VANCOMYCIN HCL 2,000 MG in 0.9 % SODIUM CHLORIDE 250 ML 125 MG IV (00:47)
[2024-09-28 00:51] LABS: Chloride 105 mmol/L (98-107); Potassium 4.4 mmoL/L (3.5-5.1); Sodium 135 mmol/L (136-145)
[2024-09-28 00:54] LABS: Alanine Aminotransferase 19 U/L (12-78); Albumin/Globulin Ratio 1.1 (1.1-1.8); Alkaline Phosphatase 90 U/L (38-126); Anion Gap 11.4 mEq/L (5-15); Aspartate Amino Transferase 22 U/L (17-59); Bilirubin,Total 0.6 mg/dl (0.2-1.3); Blood Urea Nitrogen 22 mg/dl (9-20); Calcium 9.2 mg/dl (8.4-10.2); Carbon Dioxide 23 mmol/L (22.0-30.0); Creatinine Clearance Estimated 113 mL/min (50-200); Estimated Glomerular Filt Rate 86 ml/min (>60); GFR (African American) 103 ML/MIN (>60); Globulin 3.5 g/dL (1.3-3.2); Glucose 213 mg/dl (74-100); Total Protein,Serum 7.5 g/dl (6.3-8.2)
[2024-09-28 01:25] VITALS: BP 144/75; PULSE 71; RESP 16; O2SAT 98
[2024-09-28] MEDS: IOPAMIDOL-370 (76%);100ML BOTTLE 75 ML IV (01:41)
[2024-09-28] MEDS: SODIUM CHLORIDE 0.9% 10ML SYR (RAD ONLY) 10 ML IV (01:41)
--- NOTE | 2024-09-28 01:57 | PC.NURSE ---
Called [id number] for a possible transfer to [facility]
[2024-09-28] MEDS: CLINDAMYCIN PHOSPHATE/D5W 900 MG/50 ML PIGGYBACK 100 MG IV (02:11)
[2024-09-28 02:15] VITALS: BP 146/73; PULSE 77; RESP 16; O2SAT 97
[2024-09-28 02:53] VITALS: BP 136/78; PULSE 70; RESP 16; TEMP 36.9; O2SAT 97
== END 2024-09-28 03:16 | disposition other institution (70) ==
PROVIDERS: Emergency Provider Emergency Medicine; PCP Nurse Practitioner
DX: L02.511 Cutaneous abscess of right hand (principal); L03.113 Cellulitis of right upper limb; R22.31 Localized swelling, mass and lump, right upper limb; E11.9 Type 2 diabetes mellitus without complications; I10 Essential (primary) hypertension
CPT/HCPCS: 73201; 80053; 83605; 85025; 87040; 87070; 87205; 96365; 96366; 99285; J0736; J2543; J3370; J7050; Q9967

== ENCOUNTER 2024-12-25 08:55 | Outpatient (CLI) | payer OTHER, SELFPAY ==
[2024-12-25 15:31] LABS: Hematocrit 44.6 % (42.0-52.0); Hemoglobin 15.1 g/dL (14.1-18.0); Immature Granulocytes % 0.4 %; Mean Corpuscular HGB Conc 33.9 g/dL (31.8-35.4); Mean Corpuscular Hemoglobin 30.6 pg (27.0-31.2); Mean Corpuscular Volume 90.3 fl (80-94); Nucleated Red Blood Cells % 0 %; Platelet Count 225 K/mm3 (142-424); Red Blood Count 4.94 M/mm3 (4.60-6.20); Red Cell Distribution Width-SD 42.9 fL; White Blood Count 6.7 K/mm3 (4.8-10.8)
[2024-12-25 15:51] LABS: Albumin Level 4.2 g/dl (3.5-5.0); Chloride 101 mmol/L (98-107); Potassium 4.6 mmoL/L (3.5-5.1); Sodium 134 mmol/L (136-145)
[2024-12-25 15:53] LABS: Blood Urea Nitrogen 17 mg/dl (9-20)
[2024-12-25 15:54] LABS: Alanine Aminotransferase 44 U/L (12-78); Albumin/Globulin Ratio 1.6 (1.1-1.8); Alkaline Phosphatase 71 U/L (38-126); Anion Gap 14.6 mEq/L (5-15); Aspartate Amino Transferase 33 U/L (17-59); Bilirubin,Total 0.8 mg/dl (0.2-1.3); Calcium 9.3 mg/dl (8.4-10.2); Carbon Dioxide 23 mmol/L (22.0-30.0); Cholesterol 142 mg/dl (140-200); Creatinine,Serum 0.70 mg/dl (0.66-1.25); Estimated Glomerular Filt Rate 114 ml/min (>60); GFR (African American) 138 ML/MIN (>60); Globulin 2.6 g/dL (1.3-3.2); Glucose 227 mg/dl (74-100); HDL Cholesterol 37 mg/dl (40-60); Total Protein,Serum 6.8 g/dl (6.3-8.2); Triglycerides 164 mg/dl (30-150)
[2024-12-25 16:42] LABS: Hepatitis C Ab Qual. W/ RFX NEGATIVE (Negative)
[2024-12-25 18:32] LABS: Hemoglobin A1C 8.4 % (4.0-6.0)
--- OUTSIDE RECORDS SUMMARY | 2024-12-26 11:41 | XMS_ITS | Clinical Summary ---
Author Organization Healthcare Address [address] [place] [address] Care Team Providers Care Tongue Stitcher Name Role Phone JuwanFrancisca maxwell Oleg HENDERSON Primary Care Provider [phone] Allergies No known active allergies Medications atorvastatin (Lipitor) 40 MG tablet Take 1 tablet by mouth daily. 5 Active Jardiance 25 MG Take 1 tablet by mouth daily. 5 Active OneTouch Ultra Test test strip 1 each by Other route as needed. 5 Active Lancets (OneTouch Delica Plus Lncwun20R) misc 1 each by Other route daily. 5 Active lisinopril 30 MG tablet Take 1 tablet by mouth daily. 5 Active metFORMIN XR (Glucophage-XR ) 500 MG 24 hr tablet Take 1 tablet by mouth 2 times a day. 5 Active acetaminophen (Tylenol) 325 MG tablet Take 2 tablets by mouth every 8 hours as needed for pain. Under [place] law, monthly prescriptions (30 days) can be refilled at 25 days and three-month prescriptions (90 days) at 80 days. Please contact the insurance company with questions if refills are denied. 5 Active Gauze Pads & Dressings (Nu Gauze Packing Strips) misc 1 strip 2 times a day. 1 each 1 5 Active Gauze Pads & Dressings (Gauze Dressing) 4 X4 pads 1 Pad 2 times a day. 24 each 5 Active Active Problems Problem Noted Date Diagnosed Date Cellulitis of hand 09/28/2024 Encounters Date Type Department Care Team Description 10/15/2024 Telephone [facility] [address] [place] [address] LetiArtieyasmin Claros 10/14/2024 10:20 AM EDT Office Visit [place] [address] Terrance Lo MD Cutaneous abscess of right hand (Primary Dx) 10/14/2024 Travel 10/10/2024 1:30 PM EDT Office Visit [facility] [address] [place] [address] Dayron Ambrosio MD Abscess of wrist (Primary Dx); Abscess of right hand; Hand abscess 10/10/2024 Travel 10/04/2024 Travel 10/01/2024 Travel 09/28/2024 4:16 AM EDT - 10/05/2024 3:45 PM EDT Hospital Encounter [facility] [address] [place] [address] Otto Montanez MD Houck, Jessica L, DO Romond, John B, MD Crutcher, Hilary L, MD Ragsdale, John W, MD Hand abscess (Primary Dx) Discharge Disposition: Home or Self Care 09/28/2024 Travel 09/28/2024 Orders Only External Location [address] [place] [id number] Provider, External from Last 3 Months Immunizations Immunization Administration Dates Next Due Influenza, injectable, quadrivalent 12/23/2020 Influenza, injectable, quadrivalent, preservativ e free 03/21/2023 Influenza, seasonal, injectable, preservative fr ee 02/12/2024 TD (adult), 2 Lf tetanus tox oid, preservative free, adsorbed 06/17/1996 Tdap 09/25/2024 Social History Tobacco Use Types Packs/Day Years Used Date Smoking Tobacco: Never Smokeless Tobacco: Never Tobacco Cessation:Counseling Given: Not Answered Alcohol Use Standard Drinks/Week Comments Yes 0 (1 standard drink = 0.6 oz pur e alcohol) PHQ-2 Answer Date Recorded Patient Health Questionnaire-2 Score 0 10/10/2024 PHQ-9 Answer Date Recorded Patient Health Questionnaire-9 Score 0 10/10/2024 Humiliation, Afraid, Rape, and Kick questionnair e Answer Date Recorded Within the last year, have y ou been afraid of your partner or ex-partner? No 09/30/2024 Within the last year, have y ou been humiliated or emotionally abused in other ways by your partner or ex-partner? No Within the last year, have y ou been kicked, hit, slapped, or otherwise physically hurt by your partner or ex-partner? No 09/30/2024 Within the last year, have y ou been raped or forced to have any kind of sexual activity by your partner or ex-partner? No 09/30/2024 Hunger Vital Sign Answer Date Recorded Within the past 12 months, y ou worried that your food would run out before you got the money to buy more. Never true 10/01/19 25 Within the past 12 months, t he food you bought just didn't last and you didn't have money to get more. Never true 09/30/2024 PRAPARE - Transportation Answer Date Re corded In the past 12 months, has l ack of transportation kept you from medical appointments or from getting medications? No 09/09 In the past 12 months, has l ack of transportation kept you from meetings, work, or from getting things needed for daily living? No 09/30/2024 Housing Stability Vital Sign Answer Terry e Recorded In the last 12 months, was t here a time when you were not able to pay the mortgage or rent on time? No 09/30/2024 In the past 12 months, how m any times have you moved where you were living? 0 09/30/2024 At any time in the past 12 m [facility], were you homeless or living in a long term (including now)? No 09/30/2024 CAGE ASSESSMENT Answer Date Recorded Cage unable to access Not on file 09/28/2024 Cage max number of drinks Not on file 2024 Cage Beverages a week Not on file 09/28/2024 Have you ever felt you should CUT down on your d rinking? 0 09/28/2024 Have you been ANNOYED by people criticizing your drinking? 0 09/28/2024 Have you felt GUILTY about your drinking? 0 09/28/2024 Have you had a drink first t jessie in the morning ([employer]ING [employer]) to steady your nerves or to get rid of a hangover? 0 09/28/2024 CAGE Questionnaire Score 0 025 Utilities Answer Date Recorded In the past 12 months has th [employer], gas, oil, or water [employer] threatened to shut off services in your home? No 09/30/2024 Sex and Gender Information Value Date Recorded Sex Assigned at Not on file Legal Sex Male 2:03 AM EDT Gender Identity Not on file Sexual Orientation Not on file Last Filed Vital Signs Vital Sign Reading Time Taken Comments Blood Pressure 113/74 10/14/2024 9:21 AM EDT Pulse 99 10/14/2024 9:21 AM EDT Temperature 36.5 C (97.7 F) 10/14/2024 9:21 AM EDT Respiratory Rate 16 10/10/2024 1:19 PM EDT Oxygen Saturation 97% 10/14/2024 9:21 AM EDT Inhaled Oxygen Concentration - - Weight 104 kg (230 lb) 10/14/2024 9:21 AM EDT Height 172.7 cm (5' 8 ) 10/14/2024 9:21 AM EDT Body Mass Index 34.97 10/14/2024 9:21 AM EDT Plan of Treatment Health Maintenance Due Date Last Done Comments [facility]-/Child/Adol SDOH Screenings 1960 CT Colonography 2006 Colonoscopy 2006 FIT-DNA 2006 FIT 2006 FOBT 2006 Sigmoidoscopy 2006 [facility]-Colorectal Cancer Screening 2006 [facility]-Pneumococcal Vaccine: 50 + Years (1 of 1 - PCV) 12/21/2011 [facility]-Zoster Vaccines (1 of 2) 12/21/2011 [id number] Vaccine (1 - 2023- season) 2024 [facility]-Influenza Vaccine (#1) 12/09/202402/11, 03/21/2023, 12/23/2020 [facility]- SDOH Screenings 04/01/2025 [facility]-Adult SDOH Screenings 04/01/2025 09/30/2024 [facility]-Depression Screening 10/10/2025 025, 10/10/2024 [facility]-DTaP,Tdap,and Td Vaccine s (2 - Td or Tdap) 09/25/2034 09/25/2024, 06/17/1996 [facility]-RSV Vaccine: 60+ Years o r (1 - 1-dose 75+ series) 2036 [facility]-HIV Screening Completed 10/02/2024 [facility]-Hepatitis C Screening Completed 10/02/2024 [facility]-Obesity Intervention Completed 025, 10/10/2024, 09/28/2024 HPV Vaccines Aged Out No longer eligi ble based on patient's age to complete this topic [facility]-HIB Vaccines Aged Out No longer e ligible based on patient's age to complete this topic [facility]-Hepatitis A Vaccines Aged Out No longer eligible based on patient's age to complete this topic [facility]-IPV Vaccines Aged Out No longer e ligible based on patient's age to complete this topic [facility]-Rotavirus Vaccines Aged Out No lo nger eligible based on patient's age to complete this topic Procedures Procedure Name Priority Date/Time Associated Diagnosis Comments BASIC METABOLIC PANEL, PLASMA Add-On 10/10/2024 1:45 PM EDT Abscess of wrist C-REACTIVE PROTEIN, PLASMA Routine 10/10/2024 1:45 PM EDT Abscess of wrist Abscess of right hand POCT GLUCOSE METER UNSOLICITED RESULTS Routine 10/05/2024 7:11 AM EDT C-REACTIVE PROTEIN, PLASMA Routine 10/05/2024 3:18 AM EDT BASIC METABOLIC PANEL, PLASMA Routine 10/05/2024 3:18 AM EDT CBC W/O DIFFERENTIAL Routine 10/05/2024 3:18 AM EDT POCT GLUCOSE METER UNSOLICITED RESULTS Routine 10/04/2024 7:[address] WRIST RIGHT W IV CONTRAST Routine 10/04/2024 6:47 PM EDT POCT GLUCOSE METER UNSOLICITED RESULTS Routine 10/04/2024 4:38 PM EDT POCT GLUCOSE METER UNSOLICITED RESULTS Routine 10/04/2024 11:[address] WRIST RIGHT WO IV CONTRAST Routine 10/04/2024 10:44 AM EDT POCT GLUCOSE METER UNSOLICITED RESULTS Routine 10/04/2024 7:23 AM EDT BASIC METABOLIC PANEL, PLASMA Routine 10/04/2024 2:51 AM EDT CBC W/O DIFFERENTIAL Routine 10/04/2024 2:51 AM EDT POCT GLUCOSE METER UNSOLICITED RESULTS Routine 10/03/2024 8:20 PM EDT POCT GLUCOSE METER UNSOLICITED RESULTS Routine 10/03/2024 4:43 PM EDT ECG ADULT Routine 10/03/2024 12:33 PM EDT POCT GLUCOSE METER UNSOLICITED RESULTS Routine 10/03/2024 11:33 AM EDT POCT GLUCOSE METER UNSOLICITED RESULTS Routine 10/03/2024 7:32 AM EDT CBC W/O DIFFERENTIAL Routine 10/03/2024 3:42 AM EDT BASIC METABOLIC PANEL, PLASMA Routine 10/03/2024 3:42 AM EDT POCT GLUCOSE METER UNSOLICITED RESULTS Routine 10/02/2024 7:58 PM EDT POCT GLUCOSE METER UNSOLICITED RESULTS Routine 10/02/2024 4:50 PM EDT INCISION AND DRAINAGE Routine 10/02/2024 3:44 PM EDT POCT GLUCOSE METER UNSOLICITED RESULTS Routine 10/02/2024 11:06 AM EDT POCT GLUCOSE METER UNSOLICITED RESULTS Routine 10/02/2024 7:32 AM EDT HIV 1/2 ANTIBODY/ANTIGEN SCREEN WITH REFLEX TO HIV I/II DIFFERENTIATION Routine 10/02/2024 3:18 AM EDT CBC W/O DIFFERENTIAL Routine 10/02/2024 3:18 AM EDT ACUTE HEPATITIS PANEL Routine 10/02/2024 3:18 AM EDT HIV 1/2 ANTIBODY/ANTIGEN SCREEN W/REFLEX TO HIV 1/2 ANTIBODY DIFFERENTIATION Routine 10/02/2024 3:18 AM EDT C-REACTIVE PROTEIN, PLASMA Routine 10/02/2024 3:18 AM EDT POCT GLUCOSE METER UNSOLICITED RESULTS Routine 10/02/2024 3:12 AM EDT POCT GLUCOSE METER UNSOLICITED RESULTS Routine 10/01/2024 8:06 PM EDT POCT GLUCOSE METER UNSOLICITED RESULTS Routine 10/01/2024 4:09 PM EDT POCT GLUCOSE METER UNSOLICITED RESULTS Routine 10/01/2024 11:28 AM EDT ECHO, ADULT TRANSTHORACIC COMPLETE W/ CONTRAST Routine 10/01/2024 10:50 AM EDT POCT GLUCOSE METER UNSOLICITED RESULTS Routine 10/01/2024 7:27 AM EDT C-REACTIVE PROTEIN, PLASMA Add-On 10/01/2024 3:17 AM EDT BASIC METABOLIC PANEL, PLASMA Routine 10/01/2024 3:17 AM EDT CBC W/O DIFFERENTIAL Routine 10/01/2024 3:17 AM EDT POCT GLUCOSE METER UNSOLICITED RESULTS Routine 09/30/2024 7:53 PM EDT POCT GLUCOSE METER UNSOLICITED RESULTS Routine 09/30/2024 4:11 PM EDT VANCOMYCIN, PEAK, PLASMA Timed 09/30/2024 3:00 PM EDT VANCOMYCIN, TROUGH, PLASMA Timed 09/30/2024 11:17 AM EDT POCT GLUCOSE METER UNSOLICITED RESULTS Routine 09/30/2024 11:02 AM EDT POCT GLUCOSE METER UNSOLICITED RESULTS Routine 09/30/2024 8:06 AM EDT BASIC METABOLIC PANEL, PLASMA Routine 09/30/2024 3:36 AM EDT CBC W/O DIFFERENTIAL Routine 09/30/2024 3:36 AM EDT POCT GLUCOSE METER UNSOLICITED RESULTS Routine 09/29/2024 7:26 PM EDT POCT GLUCOSE METER UNSOLICITED RESULTS Routine 09/29/2024 4:33 PM EDT BLOOD CULTURE (AEROBIC/ANAEROBIC SET) Routine 09/29/2024 4:24 PM EDT POCT GLUCOSE METER UNSOLICITED RESULTS Routine 09/29/2024 11:12 AM EDT POCT GLUCOSE METER UNSOLICITED RESULTS Routine 09/29/2024 7:29 AM EDT POCT GLUCOSE METER UNSOLICITED RESULTS Routine 09/29/2024 5:59 AM EDT WOUND OSTOMY EVAL AND TREAT Routine 09/29/2024 5:23 AM EDT BASIC METABOLIC PANEL, PLASMA Routine 09/29/2024 2:19 AM EDT CBC W/O DIFFERENTIAL Routine 09/29/2024 2:19 AM EDT POCT GLUCOSE METER UNSOLICITED RESULTS Routine 09/28/2024 7:38 PM EDT POCT GLUCOSE METER UNSOLICITED RESULTS Routine 09/28/2024 4:21 PM EDT POCT GLUCOSE METER UNSOLICITED RESULTS Routine 09/28/2024 11:42 AM EDT ANAEROBIC CULTURE Routine 09/28/2024 9:5 5 AM EDT ABSCESS CULTURE AND GRAM STAIN Routine 09/28/2024 9:55 AM EDT TYPE AND SCREEN STAT 09/28/2024 6:16 AM EDT EXTRA TUBE GOLD TOP Routine 09/28/2024 6 :00 AM EDT EXTRA TUBE GOLD TOP Routine 09/28/2024 6 :00 AM EDT EXTRA TUBE LIGHT BLUE TOP Routine 09/28/2024 6:00 AM EDT EXTRA TUBES Routine 09/28/2024 6:00 AM EDT SEDIMENTATION RATE, AUTOMATED STAT 09/28/2024 5:55 AM EDT C-REACTIVE PROTEIN, PLASMA STAT 09/28/2024 5:55 AM EDT CBC WITH AUTO DIFFERENTIAL STAT 09/28/2024 5:55 AM EDT COMPREHENSIVE METABOLIC PANEL, PLASMA STAT 09/28/2024 5:55 AM EDT BACTERIAL ID GRAM POSITIVE Routine 09/28/2024 5:55 AM EDT BLOOD CULTURE (AEROBIC/ANAEROBIC SET) STAT 09/28/2024 5:55 AM EDT BLOOD CULTURE (AEROBIC/ANAEROBIC SET) STAT 09/28/2024 5:[address] MSK OUTSIDE IMAGES 09/28/2024 1:32 AM EDT from Last 3 Months Results * C-reactive protein (10/10/2024 1:45 PM EDT) Only the most recent of5 resultswithin the time period is included. CRP, Plasma <3.0 <=8.0 mg/L 10/10/2024 3:31 PM EDT [facility] Blood Venous blood specimen / Unknown Venipuncture / Unknown 10/10/2024 1:45 PM EDT 10/10/2024 1:48 PM EDT Narrative [facility] - 10/10/2024 3:31 PM EDT This CRP test is appropriate for assessment of infection, systemic inflammation and/or tissue injury. To assess cardiovascular disease risk order high sensitivity CRP (CRPH). us Dayron Etienne MD LAB BLOOD ORDERABLES Final Result Performing Organization Address City/State/[facility] [[email or web address]] Co de Phone Number [facility] [address] [place] [address] * (ABNORMAL) Basic Metabolic Panel, Plasma (10/10/2024 1:45 PM EDT) Only the most recent of7 resultswithin the time period is included. Glucose, Plasma 110(H) 74 - 99 mg/dL 10/10/2024 3:31 PM EDT [facility] BUN, Plasma 15 8 - 23 mg/dL 10/10/2024 3:31 PM EDT [facility] Creatinine, Plasma 1.14 0.70 - 1.20 mg/dL 10/10/2024 3:31 PM EDT [facility] BUN/Creatinine Ratio 13 10/10/2024 3:31 PM EDT [facility] Sodium, Plasma 136 136 - 145 mmol/L 10/10/2024 3:31 PM EDT [facility] Potassium, Plasma 4.4 3.6 - 4.9 mmol/L 10/10/2024 3:31 PM EDT [facility] Chloride, Plasma 100 97 - 107 mmol/L 10/10/2024 3:31 PM EDT [facility] CO2, Plasma 22 22 - 29 mmol/L 10/10/2024 3:31 PM EDT [facility] Anion Gap 14 6 - 16 mmol/L 10/10/2024 3:31 PM EDT [facility] Total Calcium, Plasma 9.7 8.9 - 10.2 mg/dL 10/10/2024 3:31 PM EDT [facility] eGFRcr 72.7 mL/min/1.7 3m*2 10/10/2024 3:31 PM EDT [facility] Comment:Reported eGFRcr in m L/min/1.73m2 is based the CKD-EPI 2020 equation that does not use a race coefficient. Blood Venous blood specimen / Unknown Venipuncture / Unknown 10/10/2024 1:45 PM EDT 10/10/2024 1:48 PM EDT us Dayron Etienne MD LAB BLOOD ORDERABLES Final Result Performing Organization Address City/State/[facility] [[email or web address]] Co de Phone Number [facility] [address] [place] [address] * (ABNORMAL) POCT glucose meter (10/05/2024 7:11 AM EDT) Only the most recent of30 resultswithin the time period is included. POCT Glucose 138(H) 74 - 99 mg/dL 10/05/2024 7:12 AM EDT [facility] Comment:Accuracy of a glucos e result obtained from a capillary whole blood specimen relies upon adequate, non-compromised capillary blood flow. If the capillary glucose result is not consistent with the patient's clinical signs and symptoms, glucose testing should be repeated with either an arterial or venous sample on the glucometer or sent to the main labortory for testing. Comment 10/05/2024 7:12 AM EDT [facility] ID Suze Chahal 10/05/2024 7:12 AM EDT [facility] Device ID [id number] 10/05/2024 7:12 AM EDT [facility] Specimen Type POC Capillary 10/05/2024 7:12 AM EDT [facility] Blood Capillary blood specimen / Unknown 10/05/2024 7:11 AM EDT 10/05/2024 7:12 AM EDT us Dipesh Carrasco MD LAB POINT OF CARE TE ST DOCKED DEVICE UNSOLICITED RESULTS Final Result Performing Organization Address City/State/[facility] [[email or web address]] Co de Phone Number [facility] [address] [place] [address] * (ABNORMAL) Hemogram (CBC) (10/05/2024 3:18 AM EDT) Only the most recent of7 resultswithin the time period is included. WBC Count 11.03(H) 3.70 - 10.30 10*3/uL LAB HEMATOLOGY METHOD 10/05/2024 3:50 AM EDT [facility] RBC Count 4.87 4.60 - 6.10 10*6/uL LAB HEMATOLOGY METHOD 10/05/2024 3:50 AM EDT [facility] HGB 14.8 13.7 - 17.5 g/dL LAB HEMATOLOGY METHOD 10/05/2024 3:50 AM EDT [facility] HCT 44.0 40.0 - 51.0 % LAB HEMATOLOGY METHOD 10/05/2024 3:50 AM EDT [facility] Platelet Count 258 155 - 369 10*3/uL LAB HEMATOLOGY METHOD 10/05/2024 3:50 AM EDT [facility] MCV 90 79 - 98 fL LAB HEMATOLOGY METHOD 10/05/2024 3:50 AM EDT [facility] MCH 30.4 26.0 - 32.0 pg LAB HEMATOLOGY METHOD 10/05/2024 3:50 AM EDT [facility] MCHC 33.6 30.7 - 35.5 g/dL LAB HEMATOLOGY METHOD 10/05/2024 3:50 AM EDT [facility] RDW 12.6 11.5 - 14.5 % LAB HEMATOLOGY METHOD 10/05/2024 3:50 AM EDT [facility] MPV 9.8 8.8 - 12.5 fL LAB HEMATOLOGY METHOD 10/05/2024 3:50 AM EDT [facility] nRBC 0.0 <=0.0 per 100 WBCs LAB HEMATOLOGY METHOD 10/05/2024 3:50 AM EDT [facility] Blood Venous blood specimen / Unknown Venipuncture / Unknown 10/05/2024 3:18 AM EDT 10/05/2024 3:42 AM EDT us Dipesh Carrasco MD LAB BLOOD ORDERABLES Final Re sult [facility] [address] [place] [address] * CT Wrist Right w IV Contrast (10/04/2024 6:47 PM EDT) Anatomical Region Laterality Modality Wrist Right Computed Tomogra phy Impressions 10/04/2024 10:24 PM EDT Redemonstration of presumed postoperative changes involving the palmar aspect of the wrist with small midline wound with likely packing material and foci of soft tissue gas with a drain seen more distally in the palmar soft tissues. Continued swelling of the abductor digiti minimi muscle with area of somewhat ill-defined hypoattenuation measuring approximately 1 cm at the ulnar and palmar aspect of the muscle. This could represent residual phlegmon/abscess in the adjacent subcutaneous tissues as well as partially within the muscle. CRITICAL RESULT: No. COMMUNICATION: Per this written report. Drafted by Eamon Almaraz MD on 10/04/2024 10:03 PM Final report signed by Eamon Almaraz MD on 10/04/2024 10:24 PM Narrative 10/04/2024 10:24 PM EDT CLINICAL INDICATION: Soft tissue infection suspected, wrist, xray done TECHNIQUE: Multiple axial CT images were obtained through right upper extremity following administration of IV contrast, Omnipaque 300, [address] data set was used to generate high resolution reformatted images in the coronal and sagittal planes to facilitate diagnostic accuracy and treatment planning. Total DLP (Dose-Length Product): 88.64 mGy.cm. Please note: The reported value represents the total of one or more individual components during the CT acquisition on this date and at this time, and as such, the same value may appear in more than one CT report depending on the interpreting/reporting physicians. COMPARISON: CT scan same day FINDINGS: Patient imaged in a splint. Redemonstration of wound along the palmar aspect of the wrist with foci of soft tissue gas. Severe palmar wrist subcutaneous edema is seen extending to the hand. Drain is seen in place within the palmar aspect of the hand. Similar appearance of swelling of the abductor digit minimi minimi muscle. Seen best on image 52 of series 8 is a 10 x 8 mm area of hypoattenuation in the hyperthenar aspect of the palm which may be both superficial to as well as within the abductor digit he minimi muscle with subtle peripheral enhancement. Redemonstration of narrowing of the distal radial ulnar joint with cystic change in the ulna. Degenerative changes at the triscaphe and thumb CMC joint are again noted. Procedure Note Eamon Almaraz MD - 10/04/2024 CLINICAL INDICATION: Soft tissue infection suspected, wrist, xray done TECHNIQUE: Multiple axial CT images were obtained through right upper extremityfollowing administration of IV contrast, Omnipaque 300, 100 mL. The axialCT data set was used to generate high resolution reformatted images in thecoronal and sagittal planes to facilitate diagnostic accuracy andtreatment planning. Total DLP (Dose-Length Product): 88.64 mGy.cm. Please note: The reportedvalue represents the total of one or more individual components during theCT acquisition on this date and at this time, and as such, the same valuemay appear in more than one CT report depending on theinterpreting/reporting physicians. COMPARISON: CT scan same day FINDINGS: Patient imaged in a splint. Redemonstration of wound along the palmaraspect of the wrist with foci of soft tissue gas. Severe palmar wristsubcutaneous edema is seen extending to the hand. Drain is seen in placewithin the palmar aspect of the hand. Similar appearance of swelling ofthe abductor digit minimi minimi muscle. Seen best on image 52 of series 8is a 10 x 8 mm area of hypoattenuation in the hyperthenar aspect of thepalm which may be both superficial to as well as within the abductor digithe minimi muscle with subtle peripheral enhancement. Redemonstration of narrowing of the distal radial ulnar joint with cysticchange in the ulna. Degenerative changes at the triscaphe and thumb CMCjoint are again noted. IMPRESSION: Redemonstration of presumed postoperative changes involving the palmaraspect of the wrist with small midline wound with likely packing materialand foci of soft tissue gas with a drain seen more distally in the palmarsoft tissues. Continued swelling of the abductor digiti minimi muscle with area ofsomewhat ill-defined hypoattenuation measuring approximately 1 cm at theulnar and palmar aspect of the muscle. This could represent residualphlegmon/abscess in the adjacent subcutaneous tissues as well as partiallywithin the muscle. CRITICAL RESULT: No. COMMUNICATION: Per this written report. Drafted by Eamon Almaraz MD on 10/04/2024 10:03 PM Final report signed by Eamon Almaraz MD on 10/04/2024 10:24 PM us Dipesh Carrasco MD IMG CT PROCEDURES Final Resul t * CT Wrist Right wo IV Contrast (10/04/2024 10:44 AM EDT) Anatomical Region Laterality Modality Wrist Right Computed Tomogra phy Impressions 10/04/2024 11:10 AM EDT Soft tissue wound along the palmar aspect of the wrist with small foci of gas and apparent packing material in place. Additional drain is seen in place in the palmar subcutaneous tissues distal to the wound. Heterogeneity and swelling of the abductor digiti minimi muscle with some areas of low attenuation which could represent fluid. Evaluation for residual abscess is limited without contrast. CRITICAL RESULT: No. COMMUNICATION: Per this written report. Drafted by Eamon Almaraz MD on 10/04/2024 10:58 AM Final report signed by Eamon Almaraz MD on 10/04/2024 11:10 AM Narrative 10/04/2024 11:10 AM EDT CLINICAL INDICATION: Soft tissue infection suspected, wrist, xray done TECHNIQUE: Multiple axial CT images of right wrist were obtained without contrast administration. Reformatted images in the coronal and/or sagittal plane(s) were generated from the axial data set to facilitate diagnostic accuracy and/or surgical planning. Total DLP (Dose-Length Product): 110.59 mGy.cm. Please note: The reported value represents the total of one or more individual components during the CT acquisition on this date and at this time, and as such, the same value may appear in more than one CT report depending on the interpreting/reporting physicians. COMPARISON: Outside CT 09/28/2024 FINDINGS: Lack of contrast limits evaluation for residual abscess. There is continued narrowing of the distal radial ulnar joint with cystic change in the head of the ulna. Within the volar wrist there is a focal defect in the skin with internal hyperattenuation and foci of gas. There is severe adjacent subcutaneous edema. A drain is seen in place within the hyperthenar region of the hand. There is marked swelling with hypoattenuation of the abductor digit minimi muscle with some areas of confluent hypoattenuation seen best on image 36 series 6. Atherosclerotic vascular calcifications are noted. There is no CT evidence of osteomyelitis. Small density seen at the tip the ulnar styloid which could be related to prior injury or unfused ossification center. 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 Procedure Note Eamon Almaraz MD - 10/04/2024 CLINICAL INDICATION: Soft tissue infection suspected, wrist, xray done TECHNIQUE: Multiple axial CT images of right wrist were obtained without contrastadministration. Reformatted images in the coronal and/or sagittal plane(s)were generated from the axial data set to facilitate diagnostic accuracyand/or surgical planning. Total DLP (Dose-Length Product): 110.59 mGy.cm. Please note: The reportedvalue represents the total of one or more individual components during theCT acquisition on this date and at this time, and as such, the same valuemay appear in more than one CT report depending on theinterpreting/reporting physicians. COMPARISON: Outside CT 09/28/2024 FINDINGS: Lack of contrast limits evaluation for residual abscess. There iscontinued narrowing of the distal radial ulnar joint with cystic change inthe head of the ulna. Within the volar wrist there is a focal defect inthe skin with internal hyperattenuation and foci of gas. There is severeadjacent subcutaneous edema. A drain is seen in place within thehyperthenar region of the hand. There is marked swelling withhypoattenuation of the abductor digit minimi muscle with some areas ofconfluent hypoattenuation seen best on image 36 series 6. Atheroscleroticvascular calcifications are noted. There is no CT evidence ofosteomyelitis. Small density seen at the tip the ulnar styloid which could be related toprior injury or unfused ossification center. 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 IMPRESSION: Soft tissue wound along the palmar aspect of the wrist with small foci ofgas and apparent packing material in place. Additional drain is seen inplace in the palmar subcutaneous tissues distal to the wound. Heterogeneity and swelling of the abductor digiti minimi muscle with someareas of low attenuation which could represent fluid. Evaluation forresidual abscess is limited without contrast. CRITICAL RESULT: No. COMMUNICATION: Per this written report. Drafted by Eamon Almaraz MD on 10/04/2024 10:58 AM Final report signed by Eamon Almaraz MD on 10/04/2024 11:10 AM us Dipesh Carrasco MD IMG CT PROCEDURES Final Resul t * ECG Adult (10/03/2024 12:33 PM EDT) EKG DIAGNOSIS CLASS Normal MUSE ECG Ventricular Rate 67 BPM MUSE ECG Atrial Rate 67 BPM MUSE ECG SC Interval 156 ms MUSE ECG QRSD Interval 88 ms MUSE ECG QT Interval 440 ms MUSE ECG QTC Interval 464 ms MUSE ECG P Highland 43 degrees MUSE ECG R Highland 53 degrees MUSE ECG T Wave Highland 50 degrees MUSE ECG Diagnosis Normal sinus rhythm MUSE ECG Diagnosis Normal ECG MUSE ECG Diagnosis MUSE ECG Diagnosis Confirmed by Kvng Quinones ([id number]) on 10/03/2024 8:32:29 PM MUSE ECG 10/03/2024 12:3 3 PM EDT 10/03/2024 8:32 PM EDT us Dori Munoz MD ECG ORDERABLES Final Resul t MUSE ECG * Incision and Drainage Anterior;Right Hand Traumatic Laceration (10/02/2024 3:44 PM EDT) Narrative Velma Steel MD - 10/02/2024 3:44 PM EDT Velma Steel MD 10/02/2024 3:48 PM Incision and Drainage Anterior;Right Hand Traumatic Laceration Performed by: Velma Steel MD Authorized by: Terrance Lo MD Associated wounds: Wound 09/28/24 Traumatic Laceration Hand Anterior;Right Consent: Consent obtained: Verbal Consent given by: Patient Risks, benefits, and alternatives were discussed: yes Risks discussed: Bleeding, incomplete drainage, pain and infection Alternatives discussed: No treatment, delayed treatment, alternative treatment and observation [place] protocol: Procedure explained and questions answered to patient or proxy's satisfaction: yes Relevant documents present and verified: yes Test results available: yes Imaging studies available: yes Required blood products, implants, devices, and special equipment available: yes Site/side marked: yes Patient identity confirmed: Verbally with patient Attending Supervision?: no Location: Type: Abscess Location: Upper extremity Upper extremity location: Hand (hypothenar eminence, wrist) Hand location: R hand Pre-procedure details: Skin preparation: Chlorhexidine with alcohol Sedation: Sedation type: None Anesthesia: Anesthesia method: Local infiltration Local anesthetic: Lidocaine 1% w/o epi Procedure type: Complexity: Complex Procedure details: Ultrasound guidance: no Needle aspiration: no Incision types: Single straight Incision depth: Subcutaneous Wound management: Probed and deloculated, irrigated with saline and extensive cleaning Drainage: Purulent and bloody Drainage amount: Moderate Wound treatment: Drain placed and wound left open Packing materials: 1/4 in iodoform gauze Post-procedure details: Procedure completion: Tolerated Comments: Hypothenar incision extended distally in subcutaneous tissue with expression of minimal amounts of purulent drainage. Milking in this area also expressed serosanguinous and purulent drainage from wrist incision. Loculations were bluntly broken in hand from hypothenar incision, considerable abscess pocket extending long-term across hand. 1/4 Claudia drain placed in hand, sutured in place with 4-0 Nylon. 1/4 Nugauze packing placed in wrist. Wounds were covered with dry gauze, splint, and APARNA bandage. us Terrance Lo MD IN CLINIC/BEDSIDE ORDERABLES Fi nal Result * HIV 1 & 2 Antibody/Antigen Screen (10/02/2024 3:18 AM EDT) [facility] HIV 1 & 2 Antibody/Antigen Screen Non Reactive Non Reactive 10/02/2024 4:57 AM EDT [facility] Comment:Screening for HIV 1 & 2 antibodies, and P24 antigen is NONREACTIVE. No confirmatory testing is required. Blood Venous blood specimen / Unknown Venipuncture / Unknown 10/02/2024 3:18 AM EDT 10/02/2024 4:00 AM EDT Dori Munoz MD LAB BLOOD ORDERABLES Final Result Performing Organization Address City/[facility]/ZIP Co de Phone Number [facility] [address] [place] [address] * Hepatitis panel, acute (10/02/2024 3:18 AM EDT) [facility] Hepatitis B Surf Antigen Negative Negative 10/02/2024 5:20 AM EDT [facility] Hepatitis C Antibody Negative Negative 10/02/2024 5:20 AM EDT [facility] Hepatitis A Antibody IgM Negative Negative 10/02/2024 5:20 AM EDT [facility] Hepatitis B Core Antibody IgM Negative Negative 10/02/2024 5:20 AM EDT [facility] Blood Venous blood specimen / Unknown Venipuncture / Unknown 10/02/2024 3:18 AM EDT 10/02/2024 4:00 AM EDT us Dori Munoz MD LAB [place] [address] * ECHO, ADULT TRANSTHORACIC COMPLETE W/ CONTRAST (10/01/2024 10:50 AM EDT) [facility] BSA 2.13 m2 [facility] Height 172.7 [facility] Weight 100.2 [facility] IVSd 9 mm [facility] LVIDd 52 mm [facility] LVPWd 8 mm [facility] LV MASS(C)D 156 g [facility] CV ECHO LV MASS INDEX 73 g/m2 [facility] LV RWT 0.33 mm [facility] LVIDs 39 mm [facility] Ao Root Diam 32 mm [facility] LVOT diam 19 mm [facility] LVOT AREA 2.8 cm2 [facility] PA acc time 120 msec [facility] mean PAP 25 mmHg [facility] PA SC(ACCEL) 23.5 mmHg [facility] PA acc slope 599.6 cm/s2 [facility] MPA diam 19 mm [facility] MPA area 2.8 cm2 [facility] LAV(MOD-4ch) 49 mL [facility] MV E Vmax 82.8 cm/s [facility] MV A Vmax 104.3 cm/s [facility] MV E/A 0.8 cm/s [facility] LV Lat e' Velocity 10.4 cm/s [facility] Lat E/e' 8.0 [facility] LV Sept e' Daniel 9.9 cm/s [facility] Sep E/e' 8.4 [facility] Avg E/e' 8.2 [facility] RV s' Daniel 13.8 cm/s [facility] TAPSE 22 mm [facility] LAV(MOD-bp) Indexed 21 mL/m2 [facility] LAV(MOD-2ch) 39 mL [facility] RA MOD 4Ch 55 mL [facility] LESTER 26 mL/m2 [facility] RV base 40 mm [facility] LV EDV(MOD-4ch) 81 mL [facility] LV ESV(MOD4ch) 37 mL [facility] EF(MOD-sp4) 54 % [facility] LV EDV(MOD-2ch) 89 mL [facility] EDV(MOD-bp) 85 mL [facility] LV ESV(MOD2ch) 32 mL [facility] EF(MOD-sp2) 64 % [facility] ESV(MOD-bp) 35 mL [facility] EF(MOD-bp) 59 % [facility] LVLs ap2 4.6 mm [facility] Anatomical Region Laterality Modality Echocardiography Narrative 10/01/2024 12:00 PM EDT There is no definite echocardiographic evidence of endocarditis. Left Ventricle: The left ventricle is normal size. There is normal left ventricular myocardial thickness and mass. No left ventricular mass or thrombus is seen. The left ventricular systolic function is normal. The LVEF is visually estimated at 55 - 60%. The diastolic function is normal. No regional wall motion abnormalities are seen. Right Ventricle: The right ventricle is grossly normal in size. The right ventricular systolic function is grossly normal. Pericardium: No pericardial effusion. There is no recent study available for direct [id number] comparison. Left Ventricle The left ventricle is normal size. There is normal left ventricular myocardial thickness and mass. No left ventricular mass or thrombus is seen. The left ventricular systolic function is normal. The LVEF is visually estimated at 55 - 60%. The diastolic function is normal. No regional wall motion abnormalities are seen. Right Ventricle The right ventricle is grossly normal in size. The right ventricular systolic function is grossly normal. The spectral Doppler envelope of TR is not adequate for calculating the right ventricular systolic pressure (RVSP). Based upon other 2D and Doppler features, the RVSP is probably normal or at most mildly elevated. Left Atrium The left atrial size is normal with an indexed volume of 16-34 mL/m2. The interatrial septum is intact with no evidence for an atrial septal defect. Right Atrium The right atrial volume index is normal (18-32mL/m2). IVC/SVC Based on the IVC size and respiratory variation, the estimated right atrial pressure is 3mmHg. Mitral Valve There is mild mitral annular calcification. There is no mitral valve vegetation. There is trace mitral regurgitation. There is no mitral stenosis. Tricuspid Valve The tricuspid valve is normal in appearance. There is no tricuspid valve vegetation. There is trace tricuspid regurgitation. There is no tricuspid stenosis. Aortic Valve The aortic valve appears grossly normal. There is no aortic valve vegetation. There is no valvular regurgitation. There is no hemodynamically significant valvular aortic stenosis. Pulmonic Valve The pulmonic valve was not well visualized. There is no pulmonic regurgitation. There is no pulmonic stenosis. Pericardium No pericardial effusion. Great Vessels The aortic root is normal in size. The main pulmonary artery is normal in size. Study Details A complete transthoracic echocardiogram using two-dimensional (2D), m-mode, color and spectral flow Doppler imaging was performed. During the study the apical, parasternal, subcostal and suprasternal view was captured. Definity contrast was used during the study. Overall the study quality was poor. The study was technically difficult. The study was technically difficult due to patient's body habitus. Height: 172.7 cm. Weight: 100.2 kg. BSA: 2.13 m2. The heart rhythm during this exam was most suggestive of a sinus rhythm. Study Recommendation There is no definite echocardiographic evidence of endocarditis. There is no recent study available for direct [id number] comparison. us Dipesh Obando MD CV ECHO PROCEDURES Final Result * (ABNORMAL) Vancomycin, Peak, Plasma Please draw ~2 hours after 1200 dose of vancomycin finishes infusing. Consider obtaining level via peripheral stick. If peripheral stick is not feasible, please ensure that line is flushed well prior to drawing level. Than... (09/30/2024 3:00 PM EDT) Vancomycin, Peak, Plasma 17.3(L) 20.0 - 40.0 ug/mL 09/30/2024 3:54 PM EDT [facility] Blood Venous blood specimen / Unknown Venipuncture / Unknown 09/30/2024 3:00 PM EDT 09/30/2024 3:17 PM EDT Narrative [facility] - 09/30/2024 3:54 PM EDT Therapeutic Peak level: 20-40ug/mL Supra-therapeutic Peak level: >40 ug/mL Dipesh Obando MD LAB BLOOD ORDERABLES Final Resu lt [facility] [address] [place] [address] * (ABNORMAL) Vancomycin, Trough, Plasma Please draw ~30 minutes prior to dose due at 1200 on 09/30. Please do NOT hold dose awaiting level to return. Consider obtaining level via peripheral stick. If peripheral stick is not feasible, please ensure that line is... (09/30/2024 11:17 AM EDT) Vancomycin, Trough, Plasma 8.3(L) 10.0 - 20.0 ug/mL 09/30/2024 12:05 PM EDT [facility] Blood Venous blood specimen / Unknown Venipuncture / Unknown 09/30/2024 11:17 AM EDT 09/30/2024 11:26 AM EDT Narrative [facility] - 09/30/2024 12:05 PM EDT Therapeutic Trough level: 10-20ug/mL Supra-therapeutic Trough level: >20 ug/mL Dipesh Obando MD LAB BLOOD ORDERABLES Final Resu lt Performing Organization Address [facility]/ZIP Co de Phone Number [facility] [address] [place] [address] * Blood Culture (Aerobic/Anaerobet Set) (09/29/2024 4:24 PM EDT) Only the most recent of3 resultswithin the time period is included. Culture No growth at day 5 DARA 10/04/2024 5:01 PM EDT [facility] Blood Venous blood specimen / Unknown Venipuncture / Unknown 09/29/2024 4:24 PM EDT 09/29/2024 4:44 PM EDT Dipesh Obando MD LAB MICROBIOLOGY - GENERAL ORDE RABLES Final Result Performing Organization Address [facility] [[email or web address]] Co de Phone Number [facility] [address] [place] [address] * (ABNORMAL) Abscess Culture and Gram Stain (09/28/2024 9:55 AM EDT) Culture Light Growth 10/01/2024 1:48 PM EDT [facility] Culture 1+ Enterobacter cloacae complex(A) DARA 10/01/2024 1:48 PM EDT [facility] Comment: This isolate has been identified using the FDA Approved [employer] System The organism value for this result has been updated. These results have been appended to the previously preliminary verified report. Culture 1+ Mixed skin gina(A) DARA 10/01/2024 1:48 PM EDT [facility] Comment:The organism value f or this result has been updated. These results have been appended to the previously preliminary verified report. Gram Stain Result Rare Polymorphonuclear leukocytes(A) 10/01/2024 1:48 PM EDT [facility] Gram Stain Result Rare Gram positive rods(A) 10/01/2024 1:48 PM EDT [facility] Gram Stain Result Few Gram positive cocci in pairs and chains(A) 10/01/2024 1:48 PM EDT [facility] Abscess Skin and/or subcutaneous tissue structure / Unknown 09/28/2024 9:55 AM EDT 09/28/2024 10:36 AM EDT Narrative Organism Antibiotic Method Susceptibility Enterobacter cloacae complex Amoxicillin/Clavulanate DARA >16/8 ug/ml: Resistant Comment:Previously p relim verified as Resistant on 10/01/2024 at 0704 EDT. Enterobacter cloacae complex Ampicillin DARA 16 ug/ml: Resistant Comment:Previously p relim verified as Resistant on 10/01/2024 at 0704 EDT. Enterobacter cloacae complex Ampicillin/Sulbactam DARA 16/8 ug/ml: Resistant Comment:Previously p relim verified as Resistant on 10/01/2024 at 0704 EDT. Enterobacter cloacae complex Aztreonam DARA <=2 ug/ml: Susceptible Enterobacter cloacae complex Cefazolin DARA >16 ug/ml: Resistant Enterobacter cloacae complex Cefepime DARA <=0.5 ug/ml: Susceptible Enterobacter cloacae complex Ciprofloxacin DARA <=0.25 ug/ml: Susceptible Enterobacter cloacae complex Ertapenem DARA <=0.25 ug/ml: Susceptible Enterobacter cloacae complex Gentamicin DARA <=2 ug/ml: Susceptible Enterobacter cloacae complex Levofloxacin DARA <=0.25 ug/ml: Susceptible Enterobacter cloacae complex Meropenem DARA <=0.5 ug/ml: Susceptible Enterobacter cloacae complex Piperacillin/Tazobactam DARA <=2/4 ug/ml: Susceptible Enterobacter cloacae complex Tetracycline DARA <=2 ug/ml: Susceptible Enterobacter cloacae complex Tobramycin DARA <=2 ug/ml: Susceptible Enterobacter cloacae complex Trimethoprim/Sulfamethoxaz ole DARA <=0.5/9.5 ug/ml: Susceptible us Terrance Lo MD LAB MICROBIOLOGY - GENERAL ARJUN THACKER Final Result [facility] [address] [place] [address] * Anaerobic Culture (09/28/2024 9:55 AM EDT) Culture Mixed aerobic and anaerobic gina 10/03/2024 8:20 AM EDT [facility] Abscess Skin and/or subcutaneous tissue structure / Unknown 09/28/2024 9:55 AM EDT 09/28/2024 10:36 AM EDT Terrance Lo MD LAB MICROBIOLOGY - GENERAL ORDE RABLES Final Result Performing Organization Address City/[facility] [[email or web address]] Co de Phone Number [facility] [address] [place] [address] * Type and screen (09/28/2024 6:16 AM EDT) ABO/Rh O Positive 09/28/2024 5:13 AM EDT BLOOD BANK Antibody Screen Negative 09/28/2024 5:13 AM EDT BLOOD [facility] Specimen Expiration 10/01/2024 23:59 09/28/2024 5:13 AM EDT BLOOD BANK Blood Venous blood specimen / Unknown Venipuncture / Unknown 09/28/2024 6:16 AM EDT 09/28/2024 6:21 AM EDT us Otto Montanez MD LAB BLOOD BANK TEST ORDERABL ES Final Result Performing Organization Address [facility] de Phone Number BLOOD BANK [address] [place] [address], * Gold Top (09/28/2024 6:00 AM EDT) Only the most recent of2 resultswithin the time period is included. Extra Hold for add-ons 09/28/2024 8:02 AM EDT [facility] Comment:Auto resulted. Blood Venous blood specimen / Unknown 09/28/2024 6:00 AM EDT 09/28/2024 6:00 AM EDT us Otto Montanez MD LAB BLOOD ORDERABLES Final R esult Performing Organization Address City/[facility]/ZIP Co de Phone Number [facility] [address] [place] [address] * Light Blue Top (09/28/2024 6:00 AM EDT) Extra Hold for add-ons 09/28/2024 8:02 AM EDT [facility] Comment:Auto resulted. Blood Venous blood specimen / Unknown 09/28/2024 6:00 AM EDT 09/28/2024 6:00 AM EDT us Otto Montanez MD LAB BLOOD ORDERABLES Final R esult [facility] [address] [place] [address] * (ABNORMAL) Bacterial ID Gram Positive (09/28/2024 5:55 AM EDT) Pathologist [facility] Staphylococcus Result Detected( A) Not Detected 09/29/2024 1:41 PM EDT [facility] Comment:Assess if contaminan t or clinically relevant pathogen. Consider clinical stability and immune status of patient. MECA Result Detected( A) Not Detected 09/29/2024 1:41 PM EDT [facility] Blood Structure of left forearm / Unknown Venipuncture / Unknown 09/28/2024 5:55 AM EDT 09/28/2024 7:16 AM EDT Narrative [facility] - 09/29/2024 1:41 PM EDT Analytes include: Bacillus cereus group, Bacillus subtilis group, Corynebacterium, Cutibacterium acnes (P acnes), Enterococcus, Enterococcus faecalis, Enterococcus faecium, Lactobacillus, Listeria, Listeria monocytogenes, Micrococcus, Staphylococcus, Staphylococcus aureus, Staphylococcus epidermidis, Stapylcoccus lugdunesis, Streptococcus, Streptococcus agalactiae, Streptococcus anginosus group, Streptococcus pneumoniae, Streptococcus pyogenes, Pritchard gram negative target, Pritchard Nanci target and mecA, mecC, Jeffrey and vanB resistance genes. NOTE: A Not Detected result for result for a resistance gene does not indicate susceptibility to antimicrobials by mechanisms other than carrying the resistance genes detected by the BCID-GP assay. . PRITCHARD NANCI: Inclusive of Nanci albicans, Nanci glabrata, Pichia kudriavzevii (formerly Nanci krusei) and Nanci parapsilosis only. . PRITCHARD GRAM NEGATIVE: Includes but not limited to Acinetobacter, Bacteroides, Enterobacteriaceae, Neisseria, Pseudomonas, Serratia, Stenotrophomonas maltophilia. . Reference Value: Not detected for all analytes tested. Otto Montanez MD LAB MICROBIOLOGY - GENERAL O RDERABLES Final Result Performing Organization Address [facility]/ZIP Co de Phone Number [facility] [address] [place] [address] * (ABNORMAL) Sed rate, automated (09/28/2024 5:55 AM EDT) Sedimentation Rate 60(H) <20 mm/hr 2024 6:15 AM EDT [facility] Blood Venous blood specimen / Unknown Venipuncture / Unknown 09/28/2024 5:55 AM EDT 09/28/2024 5:59 AM EDT us Otto Montanez MD LAB BLOOD ORDERABLES Final R esult Performing Organization Address City/[facility]/ZIP Co de Phone Number [facility] [address] [place] [address] * (ABNORMAL) CBC w/diff (09/28/2024 5:55 AM EDT) WBC Count 13.70(H) 3.70 - 10.30 10*3/uL LAB HEMATOLOGY METHOD 09/28/2024 6:01 AM EDT [facility] RBC Count 4.98 4.60 - 6.10 10*6/uL LAB HEMATOLOGY METHOD 09/28/2024 6:01 AM EDT [facility] HGB 15.2 13.7 - 17.5 g/dL LAB HEMATOLOGY METHOD 09/28/2024 6:01 AM EDT [facility] HCT 44.6 40.0 - 51.0 % LAB HEMATOLOGY METHOD 09/28/2024 6:01 AM EDT [facility] Platelet Count 240 155 - 369 10*3/uL LAB HEMATOLOGY METHOD 09/28/2024 6:01 AM EDT [facility] MCV 90 79 - 98 fL LAB HEMATOLOGY METHOD 09/28/2024 6:01 AM EDT [facility] MCH 30.5 26.0 - 32.0 pg LAB HEMATOLOGY METHOD 09/28/2024 6:01 AM EDT [facility] MCHC 34.1 30.7 - 35.5 g/dL LAB HEMATOLOGY METHOD 09/28/2024 6:01 AM EDT [facility] RDW 12.9 11.5 - 14.5 % LAB HEMATOLOGY METHOD 09/28/2024 6:01 AM EDT [facility] MPV 10.4 8.8 - 12.5 fL LAB HEMATOLOGY METHOD 09/28/2024 6:01 AM EDT [facility] nRBC 0.0 <=0.0 per 100 WBCs LAB HEMATOLOGY METHOD 09/28/2024 6:01 AM EDT [facility] Differential Type Automated LAB HEMATOLOGY METHOD 09/28/2024 6:01 AM EDT [facility] Neutrophils % 81 % LAB HEMATOLOGY METHOD 09/28/2024 6:01 AM EDT [facility] Lymphocytes % 9 % LAB HEMATOLOGY METHOD 09/28/2024 6:01 AM EDT [facility] Monocytes % 8 % LAB HEMATOLOGY METHOD 09/28/2024 6:01 AM EDT [facility] Eosinophils % 1 % LAB HEMATOLOGY METHOD 09/28/2024 6:01 AM EDT [facility] Basophils % 0 % LAB HEMATOLOGY METHOD 09/28/2024 6:01 AM EDT [facility] Immature Granulocytes % 1 % LAB HEMATOLOGY METHOD 09/28/2024 6:01 AM EDT [facility] Neutrophils Absolute 11.17(H) 1.60 - 6.10 10*3/uL LAB HEMATOLOGY METHOD 09/28/2024 6:01 AM EDT [facility] Lymphocytes Absolute 1.23 1.20 - 3.90 10*3/uL LAB HEMATOLOGY METHOD 09/28/2024 6:01 AM EDT [facility] Monocytes Absolute 1.11(H) 0.30 - 0.90 10*3/uL LAB HEMATOLOGY METHOD 09/28/2024 6:01 AM EDT [facility] Eosinophils Absolute 0.07 0.00 - 0.50 10*3/uL LAB HEMATOLOGY METHOD 09/28/2024 6:01 AM EDT [facility] Basophils Absolute 0.05 0.00 - 0.10 10*3/uL LAB HEMATOLOGY METHOD 09/28/2024 6:01 AM EDT [facility] Immature Granulocytes Absolute 0.07(H) 0.00 - 0.06 10*3/uL LAB HEMATOLOGY METHOD 09/28/2024 6:01 AM EDT [facility] Blood Venous blood specimen / Unknown Venipuncture / Unknown 09/28/2024 5:55 AM EDT 09/28/2024 5:59 AM EDT Narrative [facility] - 09/28/2024 6:01 AM EDT Therapeutic decision making should be based on absolute values, rather than percentages. us Otto Montanez MD LAB BLOOD ORDERABLES Final R esult [facility] [address] [place] [address] * (ABNORMAL) CMP (09/28/2024 5:55 AM EDT) Glucose, Plasma 168(H) 74 - 99 mg/dL 09/28/2024 6:37 AM EDT [facility] BUN, Plasma 20 8 - 23 mg/dL 09/28/2024 6:37 AM EDT [facility] Creatinine, Plasma 0.73 0.70 - 1.20 mg/dL 09/28/2024 6:37 AM EDT [facility] BUN/Creatinine Ratio 27 09/28/2024 6:37 AM EDT [facility] Sodium, Plasma 137 136 - 145 mmol/L 09/28/2024 6:37 AM EDT [facility] Potassium, Plasma 4.4 3.6 - 4.9 mmol/L 09/28/2024 6:37 AM EDT [facility] Chloride, Plasma 104 97 - 107 mmol/L 09/28/2024 6:37 AM EDT [facility] CO2, Plasma 18(L) 22 - 29 mmol/L 09/28/2024 6:37 AM EDT [facility] Anion Gap 15 6 - 16 mmol/L 09/28/2024 6:37 AM EDT [facility] Total Calcium, Plasma 9.2 8.9 - 10.2 mg/dL 09/28/2024 6:37 AM EDT [facility] Total Protein 7.8 6.3 - 7.9 g/dL 09/28/2024 6:37 AM EDT [facility] Albumin, Plasma 3.9 3.5 - 5.2 g/dL 09/28/2024 6:37 AM EDT [facility] AST, Plasma 11 10 - 50 U/L 09/28/2024 6:37 AM EDT [facility] ALT, Plasma 16 10 - 50 U/L 09/28/2024 6:37 AM EDT [facility] Alkaline Phosphatase, Plasma 79 40 - 115 U/L 09/28/2024 6:37 AM EDT [facility] Total Bilirubin, Plasma 0.6 0.2 - 1.1 mg/dL 09/28/2024 6:37 AM EDT [facility] eGFRcr 102.9 mL/min/1.7 3m*2 09/28/2024 6:37 AM EDT [facility] Comment:Reported eGFRcr in m L/min/1.73m2 is based the CKD-EPI 2020 equation that does not use a race coefficient. Blood Venous blood specimen / Unknown Venipuncture / Unknown 09/28/2024 5:55 AM EDT 09/28/2024 6:06 AM EDT us Otto Montanez MD LAB BLOOD ORDERABLES Final R esult [facility] [address] [place] [address] * CT MSK OUTSIDE IMAGES (09/28/2024 1:32 AM EDT) Anatomical Region Laterality Modality Computed Tomogra phy 09/28/2024 1:32 AM EDT us External Provider IMG CT PROCEDURES Final Result from Last 3 Months Advance Directives * Full Code (Latest Code Status on File) Date Activated Date Inactivated Comments 09/28/2024 10:05 AM 10/05/2024 5:50 PM Question Answer Comments I have reviewed the capacity from the link above and, if needed, have updated to appropriate status: Yes Care Teams Tongue Stitcher Relationship Specialty Start Date End Date Francisca Echeverria APRN [facility] [place] [address] PCP - General 10/07/24
[2024-12-27 05:23] LABS: Hepatitis B Surface Antigen Negative (Negative)
== END 2024-12-25 23:59 | disposition home or self-care (01) ==
LOC: LAB.DROPOF 12-26 11:38
PROVIDERS: PCP Nurse Practitioner; Visit Provider Nurse Practitioner
DX: E78.5 Hyperlipidemia, unspecified (principal); E11.9 Type 2 diabetes mellitus without complications; I10 Essential (primary) hypertension; Z11.59 Encounter for screening for other viral diseases
CPT/HCPCS: 80053; 80061; 82043; 82570; 83036; 85025; 86803; 87340; 87389

== ENCOUNTER 2025-03-19 10:00 | Outpatient (CLI) | payer OTHER, SELFPAY ==
[2025-03-19 18:59] LABS: Alanine Aminotransferase 45 U/L (12-78); Albumin Level 4.7 g/dl (3.5-5.0); Albumin/Globulin Ratio 1.7 (1.1-1.8); Alkaline Phosphatase 79 U/L (38-126); Anion Gap 16.8 mEq/L (5-15); Aspartate Amino Transferase 29 U/L (17-59); Bilirubin,Total 0.8 mg/dl (0.2-1.3); Blood Urea Nitrogen 20 mg/dl (9-20); Calcium 9.8 mg/dl (8.4-10.2); Carbon Dioxide 24 mmol/L (22.0-30.0); Chloride 100 mmol/L (98-107); Creatinine,Serum 0.90 mg/dl (0.66-1.25); Estimated Glomerular Filt Rate 85 ml/min (>60); GFR (African American) 103 ML/MIN (>60); Globulin 2.7 g/dL (1.3-3.2); Glucose 186 mg/dl (74-100); Potassium 4.8 mmoL/L (3.5-5.1); Sodium 136 mmol/L (136-145); Total Protein,Serum 7.4 g/dl (6.3-8.2)
[2025-03-19 19:37] LABS: Thyroid Stimulating Hormone 1.50 uIU/mL (0.465-4.68)
[2025-03-19 19:56] LABS: Vitamin B12 498 pg/mL (239-931)
[2025-03-19 22:11] LABS: Hemoglobin A1C 8.3 % (4.0-6.0)
== END 2025-03-19 23:59 ==
LOC: LAB.DROPOF 03-21 11:35
PROVIDERS: PCP Nurse Practitioner; Visit Provider Nurse Practitioner
DX: E78.5 Hyperlipidemia, unspecified (principal); I10 Essential (primary) hypertension; Z12.5 Encounter for screening for malignant neoplasm of prostate; E11.9 Type 2 diabetes mellitus without complications; E66.9 Obesity, unspecified; Z86.39 Personal history of other endocrine, nutritional and metabolic disease
CPT/HCPCS: 80053; 82607; 83036; 84443; G0103